=== PATIENT | female | born 1970 | race Caucasian/White ===

== ENCOUNTER 2019-10-13 10:12 | Inpatient (IN) | payer MEDICAID ==
[~2019-10-13] VITALS: Ht 157.5 cm; Wt 80.5 kg
--- NOTE | 2019-10-13 10:18 | NUR ---
PT JOELLEN FROM [facility] C/O NAUSEA/VOMITING, +ETOH, PT IS AAOX3 MALIAN SPEAKING ONLY, KEPT RESTED AND COMFORTABLE, WILL CONTINUE TO MONITOR.
--- NOTE | 2019-10-13 10:25 | NUR ---
AT BEDSIDE FOR EVAL.
[2019-10-13] MEDS ORDERED: ONDANSETRON HCL/PF 4 MG/2 ML VIAL IVP ONE (10:30)
[2019-10-13] MEDS ORDERED: IV NS 0.9% 1,000 ML BAG IV ONE ×2 (10:30→13:00)
--- NOTE | 2019-10-13 10:35 | NUR ---
IV LINE ESTABLISHED, BLOOD DRAWN AND SENT TO LAB.
[2019-10-13] MEDS ORDERED: ONDANSETRON HCL/PF 4 MG/2 ML VIAL ONE (10:41)
[2019-10-13 10:48] LABS: BASOPHILS # (AUTO) 0.1 /CMM (0.0-0.2); BASOPHILS % (AUTO) 0.6 % (0.0-2.0); EOSINOPHILS % (AUTO) 0.2 % (0.0-6.0); HEMATOCRIT 30 % (33-45); HEMOGLOBIN 10.5 g/dL (11.5-14.8); LYMPHOCYTES # (AUTO) 0.1 /CMM (0.8-4.8); LYMPHOCYTES % (AUTO) 0.5 % (20.0-44.0); MEAN CORPUSCULAR HGB CONC 35 g/dl (31.0-36.0); MEAN CORPUSCULAR VOLUME 103 fL (82-100); MONOCYTES # (AUTO) 0.6 /CMM (0.1-1.30); MONOCYTES % (AUTO) 3.7 % (2.0-12.0); NEUTROPHILS # (AUTO) 16.7 /CMM (1.8-8.9); PLATELET COUNT (AUTO) 87 /CMM (150-450); RED BLOOD CELL COUNT(AUTO) 2.92 MIL/uL (4.0-5.2); WHITE BLOOD COUNT (AUTO) 17.6 K/uL (4.3-11.0)
[2019-10-13 11:03] LABS: ACETAMINOPHEN 0 ug/ml (10-30); ALCOHOL, BLOOD 14 mg/dL (0-0); CREATININE 1.2 mg/dL (0.6-1.3); SALICYLATE < 2.8 mg/dL (2.8-20.0)
[2019-10-13 11:04] LABS: BILIRUBIN,DIRECT 2.9 mg/dL (0.0-0.2); BILIRUBIN,TOTAL 3.6 mg/dL (0.2-1.0)
[2019-10-13 11:05] LABS: ALBUMIN 2.5 g/dL (3.4-5.0); TOTAL PROTEIN, SERUM 7.4 g/dL (6.4-8.2)
[2019-10-13 11:09] LABS: POTASSIUM 2.6 mmol/L (3.5-5.1)
[2019-10-13 11:10] LABS: MAGNESIUM 1.3 mg/dL (1.8-2.4)
[2019-10-13 11:11] LABS: CALCIUM, SERUM 7.8 mg/dL (8.5-10.1)
[2019-10-13 11:24] LABS: BAND % (MANUAL) 30 % (0.0-5.0); LYMPHOCYTES % (MANUAL) 1 % (16-48); MONOCYTES % (MANUAL) 8 % (0-11.0); NEUTROPHILS % (MANUAL) 61 (42-76)
[2019-10-13] MEDS ORDERED: ASPIRIN 325 MG TABLET ONE (11:24)
[2019-10-13] MEDS ORDERED: Magnesium 1GM/D5W 100ML PREMIX 100 ML IV ONE (11:24)
[2019-10-13] MEDS ORDERED: POTASSIUM CL. PREMIX PERIPHER. 200 ML ONE (11:24)
[2019-10-13] MEDS ORDERED: POTASSIUM CHLORIDE 20 MEQ POWDER PACKET PO ONE (11:30)
[2019-10-13] MEDS ORDERED: POTASSIUM CHLORIDE 20 MEQ TAB.PRT.SR PO ONE ×2 (11:30→11:33)
[2019-10-13] MEDS ORDERED: Magnesium 1GM/D5W 100ML PREMIX 100 ML IV SCH (11:30)
[2019-10-13] MEDS ORDERED: ASPIRIN 325 MG TABLET PO ONE (11:30)
[2019-10-13] MEDS ORDERED: PIPERACILLIN /TAZOBACTAM 3.375 G in IV D5W 50 ML IV ONE (11:30)
[2019-10-13] MEDS ORDERED: VANCOMYCIN 1 GM in IV D5W 250 ML IV ONE (11:30)
[2019-10-13] MEDS ORDERED: POTASSIUM CHLORIDE 20 MEQ POWDER PACKET ONE (11:34)
--- NOTE | 2019-10-13 11:53 | NUR ---
CALLED NURSING SUP FOR BED
[2019-10-13 12:00] VITALS: BP 95/58
[2019-10-13 12:16] LABS: ALANINE AMINOTRANSFERASE 23 U/L (12-78); ALBUMIN 2.2 g/dL (3.4-5.0); ALKALINE PHOSPHATASE 101 U/L (46-116); ASPARTATE AMINOTRANSFERASE 94 U/L (15-37); BILIRUBIN,DIRECT 2.7 mg/dL (0.0-0.2); BILIRUBIN,TOTAL 3.4 mg/dL (0.2-1.0); TOTAL PROTEIN, SERUM 6.7 g/dL (6.4-8.2)
--- NOTE | 2019-10-13 12:17 | NUR ---
URINE SPECIMEN COLLECTED AND SENT TO LAB.
--- NOTE | 2019-10-13 12:18 | NUR ---
ROMM GIVEN: 113-1
--- NOTE | 2019-10-13 12:20 | NUR ---
REPORT HORTENCIA TO MICHAEL ANDERSEN FOR KAREN.
[2019-10-13 12:29] LABS: BILIRUBIN,URINE MODERATE (NEGATIVE); BLOOD, URINE Large Ery/uL (NEGATIVE); KETONES,URINE Trace (NEGATIVE); LEUKOCYTE ESTERASE ,URINE Small (NEGATIVE); NITRITE, URINE Negative (NEGATIVE); PH,URINE 5.5 (5.0-8.0); PROTEIN,URINE >=300 mg/dl (NEGATIVE); UGLUCOSE Negative (NEGATIVE)
[2019-10-13 12:30] LABS: APPEARANCE,URINE SLIGHTLY CLOUDY (CLEAR); BACTERIA,URINE Few /HPF (None Seen); COLOR,URINE DARK YELLOW (YELLOW); SQUAMOUS EPITHELIAL CELL,UR Few /HPF (None Seen)
[2019-10-13] MEDS ORDERED: ACETAMINOPHEN ES 500 MG TABLET ONE (12:37)
[2019-10-13] MEDS ORDERED: ACETAMINOPHEN ES 500 MG TABLET PO ONE (13:00)
--- NOTE | 2019-10-13 13:10 | NUR ---
PT BROUGHT ONTO UNIT BY SERG PT DENIES SOB OR PAIN AT PRESENT MOMENT. PT WAS ABLE TO AMBULATE TO BED. PT IS ST ON MONITOR. REPORT RECEIVED FROM NATASHA STREET RN.
[2019-10-13] MEDS ORDERED: IV NS 0.9% 1,000 ML BAG IV PRN (14:00)
[2019-10-13] MEDS ORDERED: IV NS 0.9% 1,000 ML IV PRN (14:30)
[2019-10-13] MEDS ORDERED: Thiamine 100 MG in IV D5W 50 ML IV SCH (14:30)
[2019-10-13] MEDS: FOLIC ACID 1 MG TABLET PO SCH (14:53)
[2019-10-13] MEDS ORDERED: Z GUARD REMEDY 2 OZ OINT TP PRN (15:00)
[2019-10-13] MEDS ORDERED: MAG HYDROX/AL HYDROX/SIMETH 30 ML UDC PO PRN (15:00)
[2019-10-13] MEDS ORDERED: ZOLPIDEM TARTRATE 5 MG TABLET PO PRN (15:00)
[2019-10-13] MEDS ORDERED: ONDANSETRON HCL/PF 4 MG/2 ML VIAL IVP PRN (15:00)
[2019-10-13] MEDS ORDERED: MAGNESIUM HYDROXIDE 30 ML UDC PO PRN (15:00)
[2019-10-13] MEDS: ONDANSETRON HCL/PF 4 MG/2 ML VIAL IV PRN (15:08)
--- NOTE | 2019-10-13 15:49 | NUR ---
PAGED ABOUT CRITICAL TRENDING TROPONIN. AWAITING RESPONSE
[2019-10-13 16:00] VITALS: BP 105/57
--- NOTE | 2019-10-13 16:23 | NUR ---
PT REFUSING PHOTOS DUE TO HER FEELING ABOUT TO VOMIT. MD ORDERS CARRIED OUT.
[2019-10-13] MEDS ORDERED: LOPERAMIDE HCL UDC 2 MG/15 ML LIQUID PO PRN (16:30)
[2019-10-13] MEDS ORDERED: LOPERAMIDE HCL UDC(2 MG/10 ML) 2 MG/10 ML UDC PO PRN (16:30)
[2019-10-13] MEDS: CEFTRIAXONE 1 G in IV D5W 50 ML IV SCH (16:38)
[2019-10-13] MEDS: PANTOPRAZOLE 40 MG VIAL IV SCH (16:57)
[2019-10-13 18:25] LABS: OCCULT BLOOD STOOL POSITIVE (NEGATIVE)
[2019-10-13] MEDS: Magnesium 1GM/D5W 100ML PREMIX 100 ML IV SCH ×2 (18:34→19:49)
--- NOTE | 2019-10-13 19:44 | NUR ---
RN CLOSING NOTES PT CURRENTLY ST 121 ON TELE MONITOR. PT DENIES SOB OR PAIN AT PRESENT MOMENT. PT IS A&OX4. BED IS LOCKED AND IN LOWEST POSITION WITH CALL LIGHT IN REACH. PT IS ABLE TO AMBULATE TO RESTROOM. REPORT GIVEN TO JACK TAMP OPERATOR RN FOR KAREN.
[2019-10-13 20:00] VITALS: BP 115/51
--- NOTE | 2019-10-13 20:00 | NUR ---
telephone ad taker notes received pts in bed awake alert and responsive able to make needs known . on tele monitor st -115 bpm , no sob no distress noted , v/s stable afebrile , all due meds given as ordered . ivf of ns at 125 cc/hr infusing well , all needs attended too call light within reach kept pts clean dry and comfortable ,potassium level of 2.6 60 meq iv ordered , mag of 1.3 2 grams given as ordered.will continue to monitor pts.
[2019-10-13] MEDS: POTASSIUM CL. PREMIX PERIPHER. 50 ML IV SCH ×4 (20:07→23:14)
--- NOTE | 2019-10-13 20:40 | NUR ---
telescope operator notes spoke to dr. marin operations and intelligence assistant relayed trop 1.736 , and ekg - st 115 bpm ,with order to repeat trop at 00:40hrs order noted and carried out.
[2019-10-13] MEDS: IV NS 0.9% 1,000 ML IV PRN (21:07)
[2019-10-14] VITALS: BP 106/44
[2019-10-14] MEDS: POTASSIUM CL. PREMIX PERIPHER. 50 ML IV SCH ×2 (00:11→01:07)
[2019-10-14] MEDS: IV NS 0.9% 1,000 ML IV PRN ×2 (02:16→15:29)
--- NOTE | 2019-10-14 03:55 | NUR ---
RN NOTES Lukas RUSH FROM LAB CALLED FOR PRELIMINARY BLOOD CULTURE RESULT OF GRAM NEGATIVE BACILLI. DR. YIP NOTIFIED; PATIENT ALREADY ON ROCEPHIN; NO ORDERS MADE
[2019-10-14 04:00] VITALS: BP_SYST 128; BP_DIAS 55; BP_DIAS 56
[2019-10-14 06:30] LABS: BASOPHILS % (AUTO) 0.1 % (0.0-2.0); EOSINOPHILS % (AUTO) 3.7 % (0.0-6.0); HEMATOCRIT 28 % (33-45); HEMOGLOBIN 9.5 g/dL (11.5-14.8); LYMPHOCYTES # (AUTO) 0.4 /CMM (0.8-4.8); LYMPHOCYTES % (AUTO) 1.5 % (20.0-44.0); MEAN CORPUSCULAR HGB CONC 34 g/dl (31.0-36.0); MEAN CORPUSCULAR VOLUME 105 fL (82-100); MONOCYTES # (AUTO) 2.1 /CMM (0.1-1.30); MONOCYTES % (AUTO) 7.7 % (2.0-12.0); NEUTROPHILS # (AUTO) 23.2 /CMM (1.8-8.9); PLATELET COUNT (AUTO) 52 /CMM (150-450); RED BLOOD CELL COUNT(AUTO) 2.66 MIL/uL (4.0-5.2); WHITE BLOOD COUNT (AUTO) 26.7 K/uL (4.3-11.0)
--- NOTE | 2019-10-14 06:47 | NUR ---
outbound telemarketer notes pts in bed a/o x3 no sob no distress noted will endorse to rn day shift for continuity of care , pts for cardio consult.
[2019-10-14 07:29] LABS: ALBUMIN 1.8 g/dL (3.4-5.0); BILIRUBIN,TOTAL 3.9 mg/dL (0.2-1.0); CALCIUM, SERUM 6.8 mg/dL (8.5-10.1); CREATININE 1.1 mg/dL (0.6-1.3); MAGNESIUM 1.5 mg/dL (1.8-2.4); PHOSPHORUS 1.9 mg/dL (2.5-4.9); POTASSIUM 4.1 mmol/L (3.5-5.1); TOTAL PROTEIN, SERUM 5.6 g/dL (6.4-8.2)
[2019-10-14 07:49] LABS: BAND % (MANUAL) 21 % (0.0-5.0); LYMPHOCYTES % (MANUAL) 1 % (16-48); METAMYELOCYTES % 1 % (0-0); MONOCYTES % (MANUAL) 8 % (0-11.0); NEUTROPHILS % (MANUAL) 69 (42-76)
[2019-10-14 08:00] VITALS: BP 108/66
--- NOTE | 2019-10-14 08:02 | NUR ---
DIGITAL ACCOUNT DIRECTOR NOTE PATIENT IN BED, ALERT ORIENTED X3 UNDER 2L OF NC, NO SOB, ON TELE MONITOR SR HR88, R AC IN PLACE , FLUSH 12 ON NS ON 125 ML PER HR, ALL NEEDS ATTENDED, CALL LIGHT WITHIN REACH, PLAN OF CARE DISCUSSED WITH PT, ON NPO AT THIS TIME, BED IN LOWEST POSITION, CALL LIGHT WITHIN REACH, CONTINUE TO MONITOR.
[2019-10-14] MEDS: PANTOPRAZOLE 40 MG VIAL IV SCH ×2 (08:22→16:44)
[2019-10-14] MEDS: FOLIC ACID 1 MG TABLET PO SCH (08:22)
--- NOTE | 2019-10-14 08:51 | NUR ---
MACHINE LOADER NOTE SPOKE WITH DR NARANJO DAM ATTENDANT NOTIFIED THAT TROPONIN NOW IS 1.624, STSTED THAT WILL CHECK IT OUT
[2019-10-14] MEDS: Magnesium 1GM/D5W 100ML PREMIX 100 ML IV SCH ×2 (10:33→11:28)
--- NOTE | 2019-10-14 10:39 | NUR ---
SUBSTATION SUPERINTENDENT NOTE MAG1.5 DR HOLMAN AWARE ALSO NOTIFIED THAT WBC 26.7 AN DOK TO START CLEAR LIQUID DIET ,URINE SPECIMEN COLLECTED ORDERED, AWARE THAT NA 126
--- NOTE | 2019-10-14 11:23 | NUR ---
CRYSTALIZER TENDER NOTE CT ANGIO CONSENT SIGNED BY PATIENT
[2019-10-14 12:00] VITALS: BP 113/71
[2019-10-14] MEDS ORDERED: K PHOS NEUTRAL 250 MG TABLET PO ONE (12:00)
[2019-10-14] MEDS: METOPROLOL TARTRATE 50 MG TABLET PO SCH ×2 (12:07→17:19)
[2019-10-14] MEDS ORDERED: CT SWABBABLE VALVE TRANS SET 1 EA INFUS.SET MC ONE (13:40)
[2019-10-14] MEDS ORDERED: IV NS 0.9% 250 ML IV ONE (13:40)
[2019-10-14] MEDS ORDERED: IOHEXOL-350 100 ML VIAL IV ONE (13:40)
[2019-10-14] MEDS ORDERED: METOPROLOL TARTRATE INJ 5 MG/5 ML AMPUL ONE (13:52)
[2019-10-14] MEDS ORDERED: NITROGLYCERIN 0.4 MG/TAB BOTTLE ONE (13:52)
[2019-10-14] MEDS: METOPROLOL TARTRATE INJ 5 MG/5 ML AMPUL IVP PRN ×3 (13:53→14:03)
[2019-10-14] MEDS ORDERED: NITROGLYCERIN 0.4 MG/TAB BOTTLE SL ONE (14:00)
[2019-10-14] MEDS: CEFTRIAXONE 1 G in IV D5W 50 ML IV SCH (14:43)
--- NOTE | 2019-10-14 14:45 | NUR ---
PHARMACIST HELPER NOTE CY ANGIO DONE
[2019-10-14 16:00] VITALS: BP 110/86
[2019-10-14] MEDS: ACETAMINOPHEN 325 MG TABLET PO PRN (16:35)
[2019-10-14] MEDS: THIAMINE HCL 100 MG TABLET PO SCH (16:44)
--- NOTE | 2019-10-14 18:18 | NUR ---
SYSTEMS APPLICATIONS PROGRAMMING LEAD NOTE CT ANGIO NOT RESULT, SPOKE WITH RADIOLOGY DEPARTMENT ,STATED THAT WILL CHECK SOON POSSIBLE, WILL F\U
--- NOTE | 2019-10-14 18:48 | NUR ---
LUG BREAKER AND WIRE PULLER NOTE ASSISTED TO BR , ALL NEEDS ATTENDED, NOT IN DISTRESS
[2019-10-14 20:00] VITALS: BP 105/79
[2019-10-14] MEDS: METRONIDAZOLE 500 MG TABLET PO SCH (20:21)
[2019-10-14] MEDS ORDERED: PIPERACILLIN /TAZOBACTAM 3.375 G VIAL IV ONE (20:26)
[2019-10-14] MEDS ORDERED: LOPERAMIDE HCL (2 MG CAP) 2 MG CAPSULE PO PRN (20:30)
[2019-10-14] MEDS ORDERED: PIPERACILLIN /TAZOBACTAM 3.375 G in IV D5W 50 ML IV ONE (21:00)
[2019-10-15] VITALS: BP 101/72
[2019-10-15] MEDS: IV NS 0.9% 1,000 ML IV PRN ×2 (02:02→21:21)
[2019-10-15] MEDS ORDERED: PIPERACILLIN /TAZOBACTAM 3.375 G in IV D5W 100 ML IV SCH (03:00)
[2019-10-15 04:00] VITALS: BP 103/60
[2019-10-15] MEDS: METRONIDAZOLE 500 MG TABLET PO SCH ×3 (05:14→21:12)
[2019-10-15] MEDS: METOPROLOL TARTRATE 50 MG TABLET PO SCH ×4 (05:53→17:03)
[2019-10-15 06:29] LABS: EOSINOPHILS % (AUTO) 1.1 % (0.0-6.0); HEMATOCRIT 28 % (33-45); HEMOGLOBIN 9.5 g/dL (11.5-14.8); LYMPHOCYTES # (AUTO) 0.3 /CMM (0.8-4.8); MEAN CORPUSCULAR HGB CONC 34 g/dl (31.0-36.0); MEAN CORPUSCULAR VOLUME 104 fL (82-100); MONOCYTES # (AUTO) 1.7 /CMM (0.1-1.30); MONOCYTES % (AUTO) 10.6 % (2.0-12.0); NEUTROPHILS # (AUTO) 13.5 /CMM (1.8-8.9); NEUTROPHILS % (AUTO) 86.3 % (43.0-81.0); RED BLOOD CELL COUNT(AUTO) 2.68 MIL/uL (4.0-5.2); WHITE BLOOD COUNT (AUTO) 15.7 K/uL (4.3-11.0)
[2019-10-15 07:06] LABS: ALBUMIN 1.9 g/dL (3.4-5.0); BILIRUBIN,TOTAL 4.7 mg/dL (0.2-1.0); CALCIUM, SERUM 7.1 mg/dL (8.5-10.1); CREATININE 1.2 mg/dL (0.6-1.3); MAGNESIUM 1.9 mg/dL (1.8-2.4); PHOSPHORUS 1.2 mg/dL (2.5-4.9); POTASSIUM 3.1 mmol/L (3.5-5.1); TOTAL PROTEIN, SERUM 5.8 g/dL (6.4-8.2)
[2019-10-15 07:50] LABS: PLATELET COUNT (AUTO) 44 /CMM (150-450)
[2019-10-15 08:00] VITALS: BP 128/76
[2019-10-15 08:08] LABS: BAND % (MANUAL) 2 % (0.0-5.0); LYMPHOCYTES % (MANUAL) 3 % (16-48); MONOCYTES % (MANUAL) 8 % (0-11.0); NEUTROPHILS % (MANUAL) 87 (42-76)
[2019-10-15] MEDS: FOLIC ACID 1 MG TABLET PO SCH (08:48)
[2019-10-15] MEDS: PANTOPRAZOLE 40 MG VIAL IV SCH ×2 (08:48→16:16)
[2019-10-15] MEDS: THIAMINE HCL 100 MG TABLET PO SCH (08:49)
--- NOTE | 2019-10-15 08:49 | NUR ---
TELE/RN NOTES MEDICATION FOLIC ACID, THIAMINE, AND PROTONIX IV WAS NOT GIVEN DUE TO PATIENT CONTINUES TO REFUSE X3. EXPLAINED RISK AND BENEFITS PATIENT STILL REFUSED. ALSO PATIENT REMOVED HER IV AND WOULD NOT ALLOW TO INSERT ANOTHER ONE. CONTINUE TO MONITOR CLOSELY.
[2019-10-15] MEDS ORDERED: POTASSIUM PHOSPHATE MM 15 MMOL in IV D5W 250 ML IV SCH (09:30)
[2019-10-15] MEDS ORDERED: DOSING PER PHARMACY-AMIKACI IV XX PRN (10:30)
[2019-10-15] MEDS ORDERED: Potassium Phosphate meq 11 MEQ in IV D5W 100 ML IV SCH (10:30)
--- NOTE | 2019-10-15 10:30 | NUR ---
Social service consult requested by Dr. Jean-Baptiste for homelessness and alcohol abuse. Pt. is a 49 year old female who was admitted to [facility] for N-stemi and Hypokalemia. SW met with the pt. bedside. Pt. is alert and oriented x 1. Pt. is Nauruan speaking but understands some Solomon Islander. ZENON Talley assisted in Nauruan translation. Pt. is unable to provide meaningful information at this time. Pt. thinks she lives in the hospital and is caring for a friend. Pt. tends to wander the hallways at the hospital. Pt. will require a sitter and psychiatric consult. BILL consulted with Dr. Jean-Baptiste who will order a sitter and psychiatric consult for the pt.
[2019-10-15] MEDS: POTASSIUM CHLORIDE 20 MEQ TAB.PRT.SR PO SCH ×2 (10:48→12:09)
[2019-10-15] MEDS ORDERED: FEE PK DOSING 1 MIN EA MC ONE (10:51)
[2019-10-15 12:00] VITALS: BP 118/70
[2019-10-15] MEDS ORDERED: AMIKACIN IV SCH (12:00)
[2019-10-15] MEDS ORDERED: D5W IV SCH (12:00)
--- NOTE | 2019-10-15 12:48 | NUR ---
TELE/RN NOTES PATIENT WAS PICKED UP BY RADIOLOGY TO DO HER CT SCAN. PATIENT LEFT THE UNIT IN STABLE CONDITION. AWAITING FOR PATIENT RETURN.
[2019-10-15] MEDS: POTASSIUM PHOSPHATE MM 7.5 MMOL in IV D5W 100 ML IV SCH ×2 (13:59→17:03)
[2019-10-15 16:00] VITALS: BP 126/62
--- NOTE | 2019-10-15 19:15 | NUR ---
RN OPENING NOTES: PATIENT AWAKE AND VERBALLY RESPONSIVE. NOTED WITH EPISODES OF CONFUSION. NO RESPIRATORY DISTRESS. NO PAIN. ON BILATERAL SOFT WRIST RESTRAINTS. SKIN WARM TO TOUCH WITH GOOD CIRCULATION. DENIES NUMBNESS OR TINGLING SENSATION. SITTER AT BEDSIDE. SAFETY PRECAUTIONS IMPLEMENTED. BED LOCKED AND IN LOWEST POSITION. IV ACCESS ON (L) HAND #20 INTACT, PATENT, AND FLUSHING WELL; RUNNING NS AT 125 MLS/HR, TOLERATING WELL. WILL CONT. TO MONITOR FOR CHANGES.
--- NOTE | 2019-10-15 19:27 | NUR ---
MS/RN CLOSING NOTES PATIENT CONTINUES TO REMAIN IN STABLE CONDITION THROUGHOUT THE SHIFT. PROVIDED COMFORT AND SAFETY. PATIENT WAS VERY NON COMPLIANT THROUGHOUT THE DAY. DR. WEEMS WAS AWARE WELL THE CRITICAL LABS. PATIENT DELAYED THE ATB THERAPY AND KPHOS IV DUE TO PATIENT REFUSING IV REINSERTION. EVENTUALLY PATIENT WAS PLACED IN RESTRAINTS AND IV WAS ESTABLISHED. ALL MEDICATIONS WAS GIVEN ORDERED. PATIENT TOLERATED MEDICATIONS WELL. 1 ON 1 SITTER AT BEDSIDE AT ALL TIMES. ALL NEEDS ANTICIPATED. CALL LIGHT WITHIN REACHED. SAFETY MAINTAINED. BED LOCKED AND IN LOWEST POSITION. WILL CONTINUE TO MONITOR. ENDORSED TO PM NURSE FOR KRAEN.
[2019-10-15 20:00] VITALS: BP 148/58
[2019-10-16] MEDS: METOPROLOL TARTRATE 50 MG TABLET PO SCH ×4 (00:05→17:55)
[2019-10-16 04:00] VITALS: BP 122/69
[2019-10-16] MEDS: METRONIDAZOLE 500 MG TABLET PO SCH ×3 (05:00→20:43)
[2019-10-16] MEDS: IV NS 0.9% 1,000 ML IV PRN ×2 (05:16→18:24)
[2019-10-16 06:52] LABS: BASOPHILS % (AUTO) 0.1 % (0.0-2.0); EOSINOPHILS % (AUTO) 1.1 % (0.0-6.0); HEMATOCRIT 28 % (33-45); HEMOGLOBIN 9.7 g/dL (11.5-14.8); LYMPHOCYTES # (AUTO) 0.5 /CMM (0.8-4.8); MEAN CORPUSCULAR HGB CONC 35 g/dl (31.0-36.0); MEAN CORPUSCULAR VOLUME 102 fL (82-100); MONOCYTES # (AUTO) 1.8 /CMM (0.1-1.30); MONOCYTES % (AUTO) 13.5 % (2.0-12.0); NEUTROPHILS # (AUTO) 10.7 /CMM (1.8-8.9); NEUTROPHILS % (AUTO) 81.3 % (43.0-81.0); RED BLOOD CELL COUNT(AUTO) 2.71 MIL/uL (4.0-5.2); WHITE BLOOD COUNT (AUTO) 13.2 K/uL (4.3-11.0)
[2019-10-16 07:00] LABS: PLATELET COUNT (AUTO) 44 /CMM (150-450)
[2019-10-16 07:07] LABS: ALBUMIN 1.8 g/dL (3.4-5.0); BILIRUBIN,TOTAL 5.1 mg/dL (0.2-1.0); CALCIUM, SERUM 7.4 mg/dL (8.5-10.1); MAGNESIUM 1.6 mg/dL (1.8-2.4); PHOSPHORUS 2.1 mg/dL (2.5-4.9); POTASSIUM 3.2 mmol/L (3.5-5.1); TOTAL PROTEIN, SERUM 5.6 g/dL (6.4-8.2)
--- NOTE | 2019-10-16 07:10 | NUR ---
MS RODRIGUEZ OPENING NOTE: RECEIVED PATIENT IN BED. AWAKE, ALERT AND ORIENTED X 4. ON CONT O2 VIA NC @ 2LPM AND TOLERATING WELL, NO SOB AND NOT IN ACUTE DISTRESS. IV SITE ON RIGHT HAND G22 PATENT AND D5NS @ 70ML/HR INFUSING WELL. SITE CLEAN AND SECURE. COMPLAINTS OF PAIN ON RIGHT HIP FROM S/P SURGERY STILL PRESENT. CALL LIGHT IN REACH, SIDE RAILS UP, BED LOCKED, LOW AND AT SEMI-SANCHES'S POSITION. WILL CONTINUE TO MONITOR. Addendum: 10/16/19 at 1103 by FRANCISCO KELLER RN WRONG PATIENT CHART.
--- NOTE | 2019-10-16 07:20 | NUR ---
RN CLOSING NOTES: PATIENT AWAKE AND VERBALLY RESPONSIVE WITH EPISODES OF CONFUSION. NO RESPIRATORY DISTRESS. NO PAIN. RECEIVED A CALL FROM LAB REGARDING CRITICAL PLATELET [address] YIP. PER AM SHIFT NURSE YESTERDAY, DR. WEEMS AWARE OF PLATELET COUNT 44 YESTERDAY. NO ACTIVE BLEEDING NOTED. ENDORSED TO AM SHIFT NURSE TO F/U WITH AM DOCTOR AND CONTINUITY OF CARE. Addendum: 10/16/19 at 0738 by GABRIEL MCGEE RN ENDORSED TO AM SHIFT NURSE TO HOLD AMIKACIN DOSE AT 12PM TODAY PER DR. YIP. Addendum: 10/16/19 at 1101 by FRANCISCO KELLER RN WRONG PATIENT CHART.
--- NOTE | 2019-10-16 07:30 | NUR ---
MS RN OPENING NOTE: RECEIVED PATIENT IN BED. AWAKE, ALERT AND ORIENTED X1. TOLERATING ROOM AIR WELL. NO SOB, NOT IN ACUTE DISTRESS. NO PAIN NOTED OR REPORTED. ON IV NS 125ML/HR. INFUSION IS PAUSED CURRENTLY. DRESSING TO BE CHANGED. CALL LIGHT IN REACH, SIDE RAILS UP, BED LOCKED AND LOW SEMI-SANCHES'S POSITION. WILL CONTINUE TO MONITOR.
[2019-10-16 07:41] LABS: BAND % (MANUAL) 23 % (0.0-5.0); EOSINOPHILS % (MANUAL) 2 % (0-4); LYMPHOCYTES % (MANUAL) 8 % (16-48); MONOCYTES % (MANUAL) 11 % (0-11.0); NEUTROPHILS % (MANUAL) 56 (42-76)
[2019-10-16 08:00] VITALS: BP 125/71
[2019-10-16] MEDS: PANTOPRAZOLE 40 MG VIAL IV SCH ×2 (09:01→17:55)
[2019-10-16] MEDS: FOLIC ACID 1 MG TABLET PO SCH (09:01)
[2019-10-16] MEDS: THIAMINE HCL 100 MG TABLET PO SCH (09:01)
[2019-10-16] MEDS ORDERED: NEUTRA PHOS 1 POWD.PACKET PO ONE ×2 (09:30→10:30)
[2019-10-16] MEDS ORDERED: POTASSIUM CHLORIDE 20 MEQ POWDER PACKET PO SCH ×2 (09:30→12:00)
[2019-10-16] MEDS: Magnesium 1GM/D5W 100ML PREMIX 100 ML IV SCH ×2 (10:53→10:55)
--- NOTE | 2019-10-16 17:20 | NUR ---
MS RN CLOSING NOTE: RECEIVED PATIENT IN BED. AWAKE, ALERT AND ORIENTED X1. TOLERATING ROOM AIR WELL. NO SOB, NOT IN ACUTE DISTRESS. NO PAIN NOTED OR REPORTED. IV NS 125ML/HR INFUSING AT RIGHT HAND. PATIENT IS STILL ON BILATERAL SOFT WRIST RESTRAINTS DUE TO PREVIOUS BEHAVIOR EXHIBITED. CALL LIGHT IN REACH, SIDE RAILS UP, BED LOCKED AND LOW SEMI-SANCHSE'S POSITION. ENDORSED TO NIGHT NURSE FOR KAREN.
[2019-10-16 17:33] LABS: IRON, SERUM 46 ug/dl (50-175); TOTAL IRON BINDING CAPACITY 110 ug/dl (250-450)
[2019-10-16 17:47] LABS: FERRITIN 916 ng/mL (8-388)
--- NOTE | 2019-10-16 19:25 | NUR ---
RN Opening Notes Received patient from MICHAEL Barragan at 1920. Patient currently in bed awake, A/O x 1. On room air, tolerating well. No respiratory distress noted. No shortness of breath noted. IV site intact and patent, no signs of infection/infiltration noted. IVF running as ordered. Patient exhibits facial grimacing when turning due to pain on right hip from s/p surgery. Soft restraints to bilateral wrist in place, skin intact, pulses palpable, skin color within normal limits. Safety precautions implemented; call light within reach, bed locked, bed lowest position, side rails up x2. Will continue to monitor patient.
[2019-10-16 21:00] VITALS: BP 124/85
[2019-10-17] MEDS: METOPROLOL TARTRATE 50 MG TABLET PO SCH ×5 (00:13→23:52)
[2019-10-17] MEDS: IV NS 0.9% 1,000 ML IV PRN (02:51)
[2019-10-17 05:00] VITALS: BP 107/61
[2019-10-17] MEDS: METRONIDAZOLE 500 MG TABLET PO SCH ×3 (05:57→20:49)
--- NOTE | 2019-10-17 06:24 | NUR ---
RN Closing Notes Patient currently in bed asleep, resting comfortably. Easily arousable to voice. No respiratory distress noted. No shortness of breath at this time. IVF currently running. Soft restraints to bilateral wrist in place, skin intact, pulses palpable, skin color within normal limits. Safety precautions implemented; call light within reach, bed locked, bed lowest position, side rails up x2. Will continue to monitor patient and then will endorse to dayshift nurse for continuity of care.
--- NOTE | 2019-10-17 07:27 | NUR ---
MS RN OPENING NOTE PATIENT IN BED RESTING COMFORTABLY. PATIENT IN NO ACUTE DISTRESS. NO SOB NOTED. PATIENT BREATHING IS EVEN AND UNLABORED. NO FACIAL GRIMACING NOTED. BED ALARM IS ON. SAFETY PRECAUTIONS IN PLACE. PATIENT MAINTAINED ON A 1:1 SITTER. PATIENT BED IS LOCKED AND IN LOWEST POSITION. CALL LIGHT WITHIN REACH. WILL CONTINUE TO MONITOR.
[2019-10-17 07:45] LABS: CALCIUM, SERUM 6.8 mg/dL (8.5-10.1); CREATININE 0.9 mg/dL (0.6-1.3); MAGNESIUM 1.4 mg/dL (1.8-2.4); PHOSPHORUS 2.4 mg/dL (2.5-4.9)
[2019-10-17] MEDS: FOLIC ACID 1 MG TABLET PO SCH (08:24)
[2019-10-17] MEDS: THIAMINE HCL 100 MG TABLET PO SCH (08:25)
[2019-10-17] MEDS: PANTOPRAZOLE 40 MG VIAL IV SCH ×2 (08:25→16:15)
[2019-10-17 08:37] VITALS: BP 116/75
[2019-10-17 08:50] LABS: POTASSIUM 2.4 mmol/L (3.5-5.1)
--- NOTE | 2019-10-17 09:05 | NUR ---
MS RN NOTE CRITICAL LAB VALUE RECEIVED FROM LAB OF POTASSIUM 2.4. DR. WEEMS NOTIFIED AND MADE AWARE. ORDERS TO GIVE 80 MEQ OF POTASSIUM CHLORIDE. WILL CONTINUE TO MONITOR.
[2019-10-17] MEDS: POTASSIUM CHLORIDE 20 MEQ TAB.PRT.SR PO SCH ×2 (09:08→10:37)
[2019-10-17] MEDS: Magnesium 1GM/D5W 100ML PREMIX 100 ML IV SCH ×4 (10:37→14:02)
--- NOTE | 2019-10-17 11:16 | NUR ---
MS RODRIGUEZ NOTE SEEN AND EVALUATED BY DR. WEEMS. ORDERS TO STOP NS 0.9% IV HYDRATION, AND ORDER CHEST XRAY. DR. WEEMS AWARE OF LOW PLATELET LEVELS. Addendum: 10/17/19 at 1544 by FREIDA COLEMAN RN PER STOPPED IV HYDRATION DUE TO CONGESTION, WHEEZING.
[2019-10-17 11:17] LABS: EOSINOPHILS % (AUTO) 0.6 % (0.0-6.0); HEMATOCRIT 23 % (33-45); LYMPHOCYTES # (AUTO) 0.6 /CMM (0.8-4.8); LYMPHOCYTES % (AUTO) 5.8 % (20.0-44.0); MEAN CORPUSCULAR HGB CONC 35 g/dl (31.0-36.0); MEAN CORPUSCULAR VOLUME 104 fL (82-100); MONOCYTES # (AUTO) 1.6 /CMM (0.1-1.30); MONOCYTES % (AUTO) 14.6 % (2.0-12.0); NEUTROPHILS # (AUTO) 8.6 /CMM (1.8-8.9); PLATELET COUNT (AUTO) 58 /CMM (150-450); RED BLOOD CELL COUNT(AUTO) 2.21 MIL/uL (4.0-5.2); WHITE BLOOD COUNT (AUTO) 10.9 K/uL (4.3-11.0)
[2019-10-17 11:42] LABS: BILIRUBIN,DIRECT 3.6 mg/dL (0.0-0.2); TOTAL PROTEIN, SERUM 3.4 g/dL (6.4-8.2)
[2019-10-17] MEDS ORDERED: AMIKACIN IV SCH (12:00)
[2019-10-17] MEDS ORDERED: D5W IV SCH (12:00)
[2019-10-17] MEDS ORDERED: NEUTRA PHOS 1 POWD.PACKET PO ONE (12:30)
--- NOTE | 2019-10-17 12:30 | NUR ---
MS RN NOTE REPORTED CRITICAL LAB VALUE OF ALBUMIN [address]. WEEMS, NO NEW ORDERS AT THIS TIME. UPGRADE DIET TO REGULAR.
--- NOTE | 2019-10-17 12:37 | NUR ---
MS RN NOTE PER PHARMACY OKAY TO ADMINISTER THE AMIKACIN.
[2019-10-17 13:00] VITALS: BP 132/77
[2019-10-17] MEDS: ACETAMINOPHEN 325 MG TABLET PO PRN (13:53)
[2019-10-17 16:09] VITALS: BP 107/66
--- NOTE | 2019-10-17 18:16 | NUR ---
MS RN CLOSING NOTE PATIENT IN BED RESTING COMFORTABLY. PATIENT IN NO ACUTE DISTRESS. NO SOB NOTED. PATIENT BREATHING IS EVEN AND UNLABORED. PATIENT KEPT CLEAN, DRY, AND COMFORTABLE THROUGHOUT SHIFT. PATIENT TO BE KEPT NPO AFTER MIDNIGHT FOR EGD TOMORROW. CONSENT IN CHART. UNABLE TO GRAB STOOL SPECIMEN PATIENT WENT TO BATHROOM AND NOT BEDSIDE COMMODE HAT AND FLUSHED STOOL. WILL ENDORSE TO CHOKE REAMER TO GRAB STOOL CULTURE. PATIENT MAINTAINED ON A 1:1 SITTER. PATIENT BED IS LOCKED AND IN LOWEST POSITION. CALL LIGHT WITHIN REACH. WILL ENDORSE CARE TO PM SHIFT FOR KAREN.
--- NOTE | 2019-10-17 19:00 | NUR ---
MS RN NOTE RECEIVED PT IN STABLE CONDITION A/O X 3-4, NOTED TO BE IN THE RESTROOM. SITTER ALSO WITH PT. NO SIGNS OF SOB OR DISTRESS, NO C/O PAIN OR N/V. IV IN R HAND #[address] S/L. PT TO BE NPO AT MIDNIGHT, SITTER AWARE. ALL CURRENT NEEDS ATTENDED TO. BED LOW, LOCKED, UPPER RAILS UP, AND CALL LIGHT WITHIN REACH. WILL CONT. TO MONITOR.
[2019-10-17 20:15] VITALS: BP 104/66
[2019-10-17] MEDS: HYDROCODONE/APAP 5/325MG 1 EACH TABLET PO PRN (20:55)
[2019-10-18] MEDS: METRONIDAZOLE 500 MG TABLET PO SCH ×3 (05:00→21:00)
[2019-10-18] MEDS: METOPROLOL TARTRATE 50 MG TABLET PO SCH ×3 (05:07→18:00)
[2019-10-18 05:08] VITALS: BP 125/74
--- NOTE | 2019-10-18 06:23 | NUR ---
MS RN NOTE PT REMAINS IN STABLE CONDITION A/O X 3-4, CURRENTLY WATCHING TV. NO SIGNS OF SOB OR DISTRESS, NO C/O PAIN OR N/V. IV IN RFA #[address] S/L. PT NPO SINCE MIDNIGHT. ALL CURRENT NEEDS ATTENDED TO. BED LOW, LOCKED, UPPER RAILS UP, AND CALL LIGHT WITHIN REACH. WILL CONT. TO MONITOR AND ENDORSE TO NEXT SHIFT FOR KAREN.
--- NOTE | 2019-10-18 07:10 | NUR ---
MS RN OPENING NOTE: RECEIVED PATIENT IN BED, AWAKE, ALERT AND ORIENTED X3. COMMUNICATES IN BOTH [place] AND [place]GOL[place]. ON ROOM AIR AND TOLERATING WELL. NO SOB, NOT IN ACUTE DISTRESS. IV SITE ON RIGHT FOREARM G20 AND RIGHT HANDG24 IN PLACE AND PATENT, DRESSINGS CLEAN AND INTACT. NO PAIN NOTED NOR REPORTED. PATIENT IS NPO SINCE MIDNIGHT FOR PROCEDURES DUE TODAY. CALL LIGHT IN REACH,, SIDE RAILS UP, BED LOCKED, LOW AND AT SEMI-SANCHES'S POSITION. WILL CONTINUE TO MONITOR.
[2019-10-18 07:14] LABS: CALCIUM, SERUM 7.8 mg/dL (8.5-10.1); PHOSPHORUS 1.9 mg/dL (2.5-4.9)
[2019-10-18 08:00] VITALS: BP 114/65
--- NOTE | 2019-10-18 08:50 | NUR ---
RN NOTE: CONSENT WAS OBTAINED FROM PATIENT FOR Cholescintigraphy. PATIENT VERBALIZED UNDERSTANDING OF THE PROCEDURES. NO SEAFOOD/DYE ALLERGIES WERE REPORTED. NO FURTHER EDUCATION SESSION FROM THE DOCTOR WAS REQUESTED AT THE MOMENT.
[2019-10-18 09:27] LABS: ALBUMIN 1.7 g/dL (3.4-5.0); BILIRUBIN,TOTAL 6.8 mg/dL (0.2-1.0); TOTAL PROTEIN, SERUM 5.4 g/dL (6.4-8.2)
[2019-10-18] MEDS: THIAMINE HCL 100 MG TABLET PO SCH (10:00)
[2019-10-18] MEDS: FOLIC ACID 1 MG TABLET PO SCH (10:00)
[2019-10-18] MEDS: PANTOPRAZOLE 40 MG VIAL IV SCH ×2 (10:00→17:00)
--- NOTE | 2019-10-18 10:40 | NUR ---
MS RN NOTE: PATIENT WAS TAKEN BY STAFF FOR Cholescintigraphy PROCEDURE. PATIENT IN STABLE CONDITION, NO DISTRESS NOTED.
[2019-10-18] MEDS ORDERED: NEUTRA PHOS 1 POWD.PACKET PO ONE (12:00)
[2019-10-18] MEDS: POTASSIUM CL. PREMIX PERIPHER. 50 ML IV SCH ×5 (13:24→21:12)
--- NOTE | 2019-10-18 13:24 | NUR ---
MS RN NOTE: FIRST BAG OF KCL 10 MEQ/50ML IV PIGGYBACK INFUSION STARTED. ADMINISTRATION WAS LATE DUE TO PATIENT HAVING PROCEDURE DONE TODAY. CURRENTLY ON NPO. NEUTRAPHOS 2 PACKETS AND METRONIDAZOLE 500MG TAB STILL HELD.
[2019-10-18 16:00] VITALS: BP 96/57
--- NOTE | 2019-10-18 17:10 | NUR ---
MS RN NOTE: SEEN BY LATA ARTEAGA, MAXIMINO AND INFORMED PATIENT OF Magnetic Resonance Cholangiopancreatography WITHOUT TO BE DONE STAT. ZENON KEITA A STAFF FLUENT IN SENEGALESE AT BEDSIDE TRANSLATING. RISKS AND BENEFITS WERE EXPLAINED, PATIENT AGREED TO PROCEDURE. PATIENT STILL ON NPO.
--- NOTE | 2019-10-18 17:20 | NUR ---
MS RN NOTE: PATIENT WAS TAKEN BY STAFF FOR MRCP PROCEDURE. PATIENT IN STABLE CONDITION.
--- NOTE | 2019-10-18 18:20 | NUR ---
MS RN NOTE: SPOKE TO DR. RODNEY GONZALEZ FOR PATIENT'S MRCP RESULT AND WAS INFORMED THAT IMAGING SHOWED ACUTE CHOLECYSTITIS. CONTACTED LATA ARTEAGA NP OF RESULT.
--- NOTE | 2019-10-18 19:25 | NUR ---
MS RN CLOSING NOTE: PATIENT IN BED, AWAKE, ALERT AND ORIENTED X3. COMMUNICATES IN BOTH ISRAELI AND [place]. ON ROOM AIR AND TOLERATING WELL. NO SOB, NOT IN ACUTE DISTRESS. IV SITE ON RIGHT FOREARM G20 AND RIGHT HANDG24 IN PLACE AND PATENT, DRESSINGS CLEAN AND INTACT. NO PAIN NOTED NOR REPORTED. PATIENT HAS BEEN AND STILL ON NPO SINCE MIDNIGHT FOR PROCEDURES THAT WERE DONE TODAY. HIDA AND MRCP WERE DONE EARLIER ON SHIFT. WAS SEEN BY LATA ARTEAGA NP AND AWAITING FURTHER ORDERS FOR IMAGING RESULTS. PO MEDICATIONS WERE HELD, 6 BAGS OF IV PIGGYBACK 10MEQ KCL/50CC @ 50CC/HR WERE ORDERED, 2 BAGS WERE INFUSED ON SHIFT. CALL LIGHT IN REACH,, SIDE RAILS UP, BED LOCKED, LOW AND AT SEMI-SANCHES'S POSITION. ENDORSED TO ONCOMING NIGHT NURSE FOR KAREN.
[2019-10-18 20:00] VITALS: BP 109/53
[2019-10-18] MEDS ORDERED: Sodium Phosphate 15 MMOL in IV D5W 250 ML IV ONE (20:30)
[2019-10-18] MEDS ORDERED: MEROPENEM 1 G in IV NS 0.9% 100 ML IV SCH (21:30)
--- NOTE | 2019-10-18 21:47 | NUR ---
MED NOTE: LAST 2 BAGS OK KCL NONADMINISTERED. ORDER CHANGED TO KPHOS.
[2019-10-18] MEDS ORDERED: MEROPENEM 1 G VIAL IV ONE (21:50)
[2019-10-18] MEDS: POTASSIUM PHOSPHATE MM 7.5 MMOL in IV NS 0.9% 100 ML IV SCH (22:40)
[2019-10-19] MEDS: POTASSIUM PHOSPHATE MM 7.5 MMOL in IV NS 0.9% 100 ML IV SCH (02:14)
[2019-10-19 04:00] VITALS: BP 102/59
[2019-10-19] MEDS: METOPROLOL TARTRATE 50 MG TABLET PO SCH ×4 (05:14→18:00)
[2019-10-19 07:10] LABS: CALCIUM, SERUM 7.8 mg/dL (8.5-10.1); CREATININE 1.5 mg/dL (0.6-1.3); POTASSIUM 4.3 mmol/L (3.5-5.1)
[2019-10-19 08:00] VITALS: BP 127/78
[2019-10-19] MEDS: THIAMINE HCL 100 MG TABLET PO SCH (08:58)
[2019-10-19] MEDS: FOLIC ACID 1 MG TABLET PO SCH (08:58)
[2019-10-19] MEDS: MEROPENEM 1 G in IV NS 0.9% 100 ML IV SCH ×3 (08:59→21:27)
[2019-10-19] MEDS: PANTOPRAZOLE 40 MG VIAL IV SCH ×2 (08:59→17:00)
[2019-10-19] MEDS ORDERED: DEXTROSE 50%-WATER 50 ML DISP.SYRIN IVP ONE (09:30)
[2019-10-19] MEDS ORDERED: IV D5/0.45 NACL 1,000 ML IV PRN ×2 (10:30→18:00)
[2019-10-19 16:00] VITALS: BP 105/57
[2019-10-19] MEDS ORDERED: FENTANYL PF 100MCG/2ML AMPUL ONE (16:45)
[2019-10-19] MEDS ORDERED: ANESTHESIA TRAY IN PYXIS 1 EA TRAY MC ONE (16:46)
--- NOTE | 2019-10-19 19:00 | NUR ---
MS RN CLOSING PATIENT REMAINS A/Ox4, CAMEROONIAN SPEAKING. NO ACUTE DISTRESS NOTED, ON ROOM AIR. BOWEL MOVEMENT TODAY WAS BROWN AND FORMED. REPORTS ABDOMINAL PAIN. PATIENT AMBULATORY. S/P EGD TODAY. PER MD ORDERS, CLEAR LIQUIDS, PROCEDURE FOR TOMORROW AM, CONSENT OBTAINMENT ENDORSED TO NITA RN. NPO AFTER MIDNIGHT TONIGHT. IV SITES X2 C/D/I. BED ALARM ON. BP STABLE THROUGHOUT SHIFT. FRIEND + COMMODE AT BEDSIDE. ISOLATION FOR ESBL URINE IN PLACE. CALL LIGHT WITHIN REACH
--- NOTE | 2019-10-19 19:25 | NUR ---
MS RN OPENING NOTE PM PATIENT A/Ox4, VENEZUELAN SPEAKING JAPANESE SPEAKING MALE FRIEND AT THE BEDSIDE. PT IN NO APPARENT ACUTE DISTRESS ON ROOM AIR BREATHING EVEN AND UNLABORED. PT REPORTS MILD ABDOMINAL PAIN TO RIGHT SIDE /. PATIENT AMBULATORY PER REPORT SEEN IN BED. REVIEWED POC WITH HELP OF FRIEND AT BEDSIDE TO TRANSLATE PATIENT HAS ORDERS TO HAVE LAP SAVI TOMORROW. PT IS IN AGREEMENT WITH THE PLAN. PT TOLERATING CLEAR LIQUID DIET DENIES NAUSEA VOMITING. REVIEWED PLAN TO BE NPO AFTER MIDNIGHT TONIGHT. BED ALARM ON. ON CONTACT ISOLATION FOR ESBL URINE IN PLACE. CALL LIGHT WITHIN REACH BED DOWN LOCKED SRX2. WILL CONT TO MONITOR.
[2019-10-19 20:00] VITALS: BP 93/51
--- NOTE | 2019-10-19 21:18 | NUR ---
consents for lap binu and consent for anesthesia signed with help of abel rahman whom speaks turkmen.
[2019-10-19] MEDS: HYDROCODONE/APAP 5/325MG 1 EACH TABLET PO PRN (21:27)
--- NOTE | 2019-10-19 22:08 | NUR ---
DR. RAMSEY PHONE CALL dr. ramsey called and reviewed details of vera pina. informed dakota had already written orders for surgery in am and to keep pt npo. orders reviewed. new order for dilaudid prn ivp for sever pain given. states he will be calling bathhouse attendant to have surgery scheduled for in the am tomorrow. and reaffirmed to keep pt npo after midnight.
[2019-10-19] MEDS ORDERED: HYDROMORPHONE INJ 0.5 MG/0.5 ML SYRINGE IV PRN (22:30)
[2019-10-20] VITALS (26 sets, daily range): BP systolic 86–111; BP diastolic 46–72
[2019-10-20] MEDS: MEROPENEM 1 G in IV NS 0.9% 100 ML IV SCH ×3 (04:38→21:21)
[2019-10-20] MEDS: METOPROLOL TARTRATE 50 MG TABLET PO SCH ×5 (04:48→23:20)
--- NOTE | 2019-10-20 04:49 | NUR ---
METOPROLOL HELD. metoprolol being held d/t patient having bp of 98/50. outside paramaters. sbp to be greater then 105.
--- NOTE | 2019-10-20 06:22 | NUR ---
MS RN CLOSING NOTE PM PATIENT A/Ox4, [place] SPEAKING KAZAKH SPEAKING IN BED. PT IN NO APPARENT ACUTE DISTRESS ON ROOM AIR BREATHING EVEN AND UNLABORED. PT REPORTS ABDOMINAL PAIN HAS SUBSIDED. REVIEWED WITH PATIENT HARITHA HOU TODAY AT 10 AM. PT BEEN NPO SINCE MIDNIGHT. BED ALARM ON. ON CONTACT ISOLATION FOR ESBL URINE IN PLACE. CALL LIGHT WITHIN REACH BED DOWN LOCKED SRX2. WILL CONT TO MONITOR.
[2019-10-20 06:48] LABS: BASOPHILS % (AUTO) 0.1 % (0.0-2.0); EOSINOPHILS % (AUTO) 0.1 % (0.0-6.0); HEMATOCRIT 27 % (33-45); HEMOGLOBIN 9.5 g/dL (11.5-14.8); LYMPHOCYTES # (AUTO) 1.2 /CMM (0.8-4.8); LYMPHOCYTES % (AUTO) 3.3 % (20.0-44.0); MEAN CORPUSCULAR HGB CONC 35 g/dl (31.0-36.0); MEAN CORPUSCULAR VOLUME 102 fL (82-100); MONOCYTES # (AUTO) 1.4 /CMM (0.1-1.30); MONOCYTES % (AUTO) 3.9 % (2.0-12.0); NEUTROPHILS # (AUTO) 32.3 /CMM (1.8-8.9); NEUTROPHILS % (AUTO) 92.6 % (43.0-81.0); PLATELET COUNT (AUTO) 248 /CMM (150-450); RED BLOOD CELL COUNT(AUTO) 2.63 MIL/uL (4.0-5.2)
[2019-10-20 06:51] LABS: CALCIUM, SERUM 7.5 mg/dL (8.5-10.1); CREATININE 1.8 mg/dL (0.6-1.3); MAGNESIUM 1.9 mg/dL (1.8-2.4); PHOSPHORUS 3.8 mg/dL (2.5-4.9); WHITE BLOOD COUNT (AUTO) 34.9 K/uL (4.3-11.0)
--- NOTE | 2019-10-20 06:58 | NUR ---
DR. STEINER ([facility] SHRINK PIT OPERATOR DOCTOR) PAGED FOR CRITICAL LAB VALUE OF WBC 34.9 CRITICAL VALUE.
--- NOTE | 2019-10-20 07:04 | NUR ---
OBDULIA CALLED BACK INFORMED OF LAB VALUE. NO NEW ORDERS RECIEVED.
[2019-10-20] MEDS: PANTOPRAZOLE 40 MG VIAL IV SCH ×2 (08:22→17:02)
[2019-10-20 08:42] LABS: BAND % (MANUAL) 6 % (0.0-5.0); LYMPHOCYTES % (MANUAL) 3 % (16-48); MONOCYTES % (MANUAL) 3 % (0-11.0); NEUTROPHILS % (MANUAL) 88 (42-76)
[2019-10-20] MEDS: FOLIC ACID 1 MG TABLET PO SCH (09:00)
[2019-10-20] MEDS: THIAMINE HCL 100 MG TABLET PO SCH (09:00)
[2019-10-20] MEDS ORDERED: MEPERIDINE HCL/PF 100 MG/ML DISP.SYRIN ONE (10:25)
[2019-10-20] MEDS ORDERED: FENTANYL PF 250MCG/5ML AMPUL ONE (10:25)
[2019-10-20] MEDS ORDERED: MIDAZOLAM HCL 2 MG/2ML VIAL ONE (10:25)
[2019-10-20] MEDS ORDERED: ROCURONIUM BROMIDE 50 MG/5 ML ONE (10:27)
[2019-10-20] MEDS ORDERED: KETOROLAC TROMETHAMINE INJ 30 MG/ML VIAL ONE ×2 (10:29)
[2019-10-20] MEDS ORDERED: LIDOCAINE HCL/MPF 1% 30 ML VIAL IJ ONE (10:44)
[2019-10-20] MEDS ORDERED: BUPIVACAINE MPF 0.5% W/EPI INJ 30 ML VIAL ONE (10:44)
[2019-10-20] MEDS ORDERED: ATRACURIUM 100MG/10 ML MDV IV ONE (11:17)
[2019-10-20] MEDS ORDERED: ALBUMIN 5% 250 ML IV ONE (11:21)
[2019-10-20] MEDS ORDERED: CELLULOSE,OXIDIZED 1 PKT EACH MC ONE ×2 (12:06→12:21)
[2019-10-20] MEDS ORDERED: EPINEPHRINE (1:1000) 1 MG/ML AMPUL ONE ×2 (12:11→12:21)
--- NOTE | 2019-10-20 12:30 | NUR ---
FLAKITA RN Notes Pt to ICU following Desiree Hudson. Report given to NIGHT NURSE for continuity of care. Belongings/chart sent to ICU RM 253.
[2019-10-20] MEDS ORDERED: BACITRACIN ZINC OINT PACKET 1 EA PACKET TP ONE (12:48)
--- NOTE | 2019-10-20 13:25 | NUR ---
ICU/RN: Pt received from OR S/P laparascopic cholecystectomy, intubated, breathing even and unlabored, sedated. Bedside report received from Dr Hutchins, anesthesiologist. Per MD, pt unable to ventilate adequately with "tidal volumes in 100's," and elected to keep pt intubated for management in ICU. Pt with 4 lap sites, with DHRUV draining ascites. Pt responsive to pain.
--- NOTE | 2019-10-20 13:35 | NUR ---
ICU/RN: Spoke with Dr Flood on the phone, informed of 305cc serosanguineous drainage from DHRUV bulb within 10 minutes. 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
--- NOTE | 2019-10-20 13:40 | NUR ---
ICU/RN: Dr Mendoza at bedside for pulmonology consult; updated on pt status. Vent settings reviewed, new orders noted and carried out.
--- NOTE | 2019-10-20 13:45 | NUR ---
ICU/RN: MAXIMINO Bhagat notified of pt change in condition and transfer to ICU. Orders noted and carried out.
[2019-10-20] MEDS: PROPOFOL 100 ML IV PRN (14:20)
--- NOTE | 2019-10-20 14:45 | NUR ---
ICU/RN: Spoke with Rx regarding 1300 Merrem dose; awaiting delivery.
[2019-10-20] MEDS ORDERED: IV NS 0.9% 500 ML IV ONE (15:30)
[2019-10-20 16:19] LABS: ABG BASE EXCESS -7.9 mmol/L; ABG OXYGEN SATURATION 98.4 % (92.0-98.5); ABG PCO2 38.8 mmHg (35.0-45.0); ABG PH 7.287 (7.350-7.450); AaDO2 89.6 mmHg; COHb 0.4 % (0.5-1.5); MetHb 1.2 % (0.0-1.5); O2Hb 96.8 % (94.0-97.0); SITE, ABG Left Radial; VENT MODE, BG 650 7 +0 40%
[2019-10-20] MEDS: IV D5/ 0.9% NACL 1,000 ML IV PRN (17:03)
--- NOTE | 2019-10-20 18:40 | NUR ---
ICU/RN: Pt in bed, off sedation, appears comfortable and in no distress. Responds to touch. DHRUV in place, continuous to have serosanguineous output. SR on monitor. FC draining dark isabella urine to gravity. Pending midline insertion.
--- NOTE | 2019-10-20 19:10 | NUR ---
ICU/MANAGER UNIVERSAL PT REQUIRED MIDLINE. MIDLINE NURSE PLACED LINE TO RIGHT UPPER ARM.
--- NOTE | 2019-10-20 19:45 | NUR ---
ICU/COMMUNITY MIDWIFE RECEIVED REPORT FROM DAY SHIFT NURSE. SEE FLOWSHEET FOR ASSESSMENT. THERE ARE NO SKIN ISSUES THAT NEED TO BE ADDRESSED. PT IS ALERT X 2 .PT IS CURRENTLY ORALLY INTUBATED, TOLERATING THESE SETTINGS WITH SATURATION AT 97-100%. PT WAS TURNED AND REPOSITIONED FOR COMFORT AND CARE. WILL CONTINUE TO MONITOR THIS PT. PT POST OPERATION OF LAP SAVI WITH DRAINING DHRUV. PT HAS NO SEDATION ON.
[2019-10-20] MEDS ORDERED: NOREPINEPHRINE 8 MG in IV D5W 500 ML IV PRN (20:00)
--- NOTE | 2019-10-20 20:05 | NUR ---
ICU/PHILOSOPHY FACULTY DEIDRA JATIN SAID OK TO PLACE A PICC LINE AND OK TO START LEVO IF NEEDED FOR LOW BP
--- NOTE | 2019-10-20 22:10 | NUR ---
ICU/LINEN SUPPLY LOAD BUILDER PT WAS TURNED AND REPOSITIONED FOR COMFORT AND CARE. PT ORALLY INTUBATED, WITH SATURATION AT 93-95%. WILL CONTINUE TO MONITOR THIS PT. DHRUV IS DRAINING INTO SECOND BAG.
--- NOTE | 2019-10-20 23:31 | NUR ---
ICU/ELECTRO MECHANIC PT HAS MIDNIGHT DOSE OF LOPRESSER WHICH WAS HELD DUE TO BLOOD PRESSURE 91/46. WILL CONTINUE TO MONITOR PT'S BLOOD PRESSURE ORDERED BY .
[2019-10-21] VITALS (39 sets, daily range): BP systolic 82–163; BP diastolic 23–102
--- NOTE | 2019-10-21 00:48 | NUR ---
ICU/STAKING PRESS OPERATOR PT WAS TURNED AND REPOSITIONED FOR COMFORT AND CARE. PT REMAINS ORALLY INTUBATED, WITH SATURATION AT 100%. WILL CONTINUE TO MONITOR THIS PT. NO ACUTE PAIN SEEN ALONG WITH NO ACUTE DISTRESS SEEN.
[2019-10-21] MEDS: HYDROMORPHONE 1 MG/1 ML DISP.SYRIN IV PRN (01:00)
--- NOTE | 2019-10-21 01:07 | NUR ---
ICU/BALING PRESS OPERATOR DILAUDID 0.5MG GIVEN IVP FOR PAIN AT 09/09 TO POST OP SITE, BY LIFT MECHANIC NURSE. WILL CONTINUE TO MONITOR THIS PT.
--- NOTE | 2019-10-21 03:00 | NUR ---
ICU/CITY COUNCILMAN PT WAS GIVEN AM CARE. PT TOLERATED THIS WELL, REMAINS ON CURRENT VENT SETTINGS WITH SATURATION AT 100%. J/P DRAIN WAS EMPTIED OUT. PT WAS TURNED AND REPOSITIONED FOR COMFORT AND CARE. WILL CONTINUE TO MONITOR THIS PT.
--- NOTE | 2019-10-21 04:30 | NUR ---
ICU/POLYMERIZATION SUPERVISOR AM LABS WERE DRAWN, AWAITING FOR ANY ABNORMAL LABS.
[2019-10-21] MEDS: MEROPENEM 1 G in IV NS 0.9% 100 ML IV SCH ×2 (04:38→17:13)
[2019-10-21] MEDS: IV D5/ 0.9% NACL 1,000 ML IV PRN ×2 (04:39→20:52)
[2019-10-21 05:15] LABS: BASOPHILS # (AUTO) 0.1 /CMM (0.0-0.2); BASOPHILS % (AUTO) 0.3 % (0.0-2.0); HEMATOCRIT 24 % (33-45); LYMPHOCYTES # (AUTO) 0.6 /CMM (0.8-4.8); MEAN CORPUSCULAR HGB CONC 34 g/dl (31.0-36.0); MEAN CORPUSCULAR VOLUME 103 fL (82-100); MONOCYTES # (AUTO) 0.8 /CMM (0.1-1.30); MONOCYTES % (AUTO) 2.7 % (2.0-12.0); NEUTROPHILS # (AUTO) 28.9 /CMM (1.8-8.9); PLATELET COUNT (AUTO) 238 /CMM (150-450); RED BLOOD CELL COUNT(AUTO) 2.28 MIL/uL (4.0-5.2)
[2019-10-21 05:28] LABS: BILIRUBIN,DIRECT 7.6 mg/dL (0.0-0.2); BILIRUBIN,TOTAL 9.2 mg/dL (0.2-1.0); CALCIUM, SERUM 7.6 mg/dL (8.5-10.1); CREATININE 1.8 mg/dL (0.6-1.3); MAGNESIUM 1.5 mg/dL (1.8-2.4); POTASSIUM 4.1 mmol/L (3.5-5.1); TOTAL PROTEIN, SERUM 4.6 g/dL (6.4-8.2)
--- NOTE | 2019-10-21 05:30 | NUR ---
ICU/FOOD AND BEVERAGE LEAD URINE COLLECTED FOR CULTURE AND PROFILE. THIS WAS ORDERED FOR THE INFECTIOUS DISEASE SECY [facility] WHO ORDERED THIS.
[2019-10-21 05:40] LABS: ALBUMIN 1.3 g/dL (3.4-5.0)
[2019-10-21] MEDS: METOPROLOL TARTRATE 50 MG TABLET PO SCH ×3 (06:00→18:00)
[2019-10-21 06:03] LABS: WHITE BLOOD COUNT (AUTO) 30.4 K/uL (4.3-11.0)
[2019-10-21 06:33] LABS: APPEARANCE,URINE SL CLOUDY (CLEAR); BILIRUBIN,URINE LARGE (NEGATIVE); BLOOD, URINE LARGE Ery/uL (NEGATIVE); COLOR,URINE BROWN (YELLOW); KETONES,URINE TRACE (NEGATIVE); LEUKOCYTE ESTERASE ,URINE NEGATIVE (NEGATIVE); NITRITE, URINE NEGATIVE (NEGATIVE); PROTEIN,URINE 30 mg/dl (NEGATIVE); UGLUCOSE NEGATIVE (NEGATIVE)
--- NOTE | 2019-10-21 06:40 | NUR ---
ICU/MANAGER OFFICE SERVICES ALBUMIN 1.3 FOR TODAY, YESTERDAY IS 1.7. MD STEINER CALLED. SAID TO WATCH IT.
[2019-10-21 06:48] LABS: LYMPHOCYTES % (MANUAL) 1 % (16-48); MONOCYTES % (MANUAL) 1 % (0-11.0); NEUTROPHILS % (MANUAL) 98 (42-76)
[2019-10-21 07:24] LABS: RBC,URINE 81-100 /HPF (0-2)
[2019-10-21 07:25] LABS: BACTERIA,URINE Few /HPF (None Seen); MUCUS,URINE Few /LPF (None Seen); URINE AMORPHOUS URATE Few /HPF (None Seen)
[2019-10-21] MEDS: FOLIC ACID 1 MG TABLET PO SCH (08:18)
[2019-10-21] MEDS: THIAMINE HCL 100 MG TABLET PO SCH (08:18)
[2019-10-21] MEDS: PANTOPRAZOLE 40 MG VIAL IV SCH ×2 (08:22→17:11)
[2019-10-21] MEDS: PROPOFOL 100 ML IV PRN (08:37)
[2019-10-21] MEDS ORDERED: DC PROPOFOL WHEN EXTUBATED XX PRN (09:00)
--- NOTE | 2019-10-21 09:45 | NUR ---
ICU/RN: Unable to collect respiratory culture; no secretions noted.
[2019-10-21 10:25] LABS: ABG BASE EXCESS -6.8 mmol/L; ABG OXYGEN SATURATION 98.2 % (92.0-98.5); ABG PCO2 36.5 mmHg (35.0-45.0); ABG PH 7.325 (7.350-7.450); AaDO2 100.2 mmHg; COHb 0.2 % (0.5-1.5); MetHb 0.6 % (0.0-1.5); O2Hb 97.4 % (94.0-97.0); SITE, ABG Left Brachial
--- NOTE | 2019-10-21 10:30 | NUR ---
PER DR LAU PATIENT WAS EXTUBATED AND TOLERATED WELL. PLACED ON 2L N/C. RN AWARE.
--- NOTE | 2019-10-21 11:08 | NUR ---
ICU/RN: Pt s/p extubation, tolerating 2L/min O2 via NC. Pt awake, follows commands, slightly anxious. Oriented to poc. Pt compliant. Dr Flood paged to clarify diet orders. Awaiting call back.
[2019-10-21] MEDS ORDERED: Magnesium 1GM/D5W 100ML PREMIX 100 ML IV SCH (11:30)
[2019-10-21] MEDS ORDERED: IV NS 0.9% 500 ML IV ONE (11:30)
--- NOTE | 2019-10-21 11:30 | NUR ---
ICU/RN: Dr Jacobs at bedside; updated on pt status. Per MD, okay for pt to start on clear liquids and advance as tolerated. Informed of low urine output, BP in 90's. Bolus for NS 500cc noted and carried out.
[2019-10-21] MEDS: HYDROCODONE/APAP 5/325MG 1 EACH TABLET PO PRN (17:11)
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
[2019-10-21] MEDS: LINEZOLID RTU BAG 600 MG in PREMIX 1 EA IV SCH (21:00)
[2019-10-21] MEDS ORDERED: METRONIDAZOLE 500MG/ NS 100ML 500 MG in PREMIX 1 EA IV SCH (21:00)
[2019-10-21] MEDS ORDERED: METRONIDAZOLE 500MG/ NS 100ML 100 ML IV ONE (22:52)
[2019-10-21] MEDS ORDERED: LINEZOLID RTU BAG 300 ML IV ONE (23:04)
[2019-10-22] VITALS (14 sets, daily range): BP systolic 91–152; BP diastolic 34–83
[2019-10-22] MEDS: MEROPENEM 1 G in IV NS 0.9% 100 ML IV SCH ×2 (05:01→18:06)
[2019-10-22 05:02] LABS: BASOPHILS % (AUTO) 0.1 % (0.0-2.0); HEMATOCRIT 25 % (33-45); HEMOGLOBIN 8.4 g/dL (11.5-14.8); LYMPHOCYTES # (AUTO) 0.8 /CMM (0.8-4.8); LYMPHOCYTES % (AUTO) 2.8 % (20.0-44.0); MEAN CORPUSCULAR HGB CONC 34 g/dl (31.0-36.0); MEAN CORPUSCULAR VOLUME 103 fL (82-100); MONOCYTES # (AUTO) 1.3 /CMM (0.1-1.30); MONOCYTES % (AUTO) 4.5 % (2.0-12.0); NEUTROPHILS # (AUTO) 26.7 /CMM (1.8-8.9); NEUTROPHILS % (AUTO) 92.6 % (43.0-81.0); PLATELET COUNT (AUTO) 289 /CMM (150-450); RED BLOOD CELL COUNT(AUTO) 2.44 MIL/uL (4.0-5.2); WHITE BLOOD COUNT (AUTO) 28.8 K/uL (4.3-11.0)
[2019-10-22 05:15] LABS: CALCIUM, SERUM 7.8 mg/dL (8.5-10.1); CREATININE 1.8 mg/dL (0.6-1.3); MAGNESIUM 1.8 mg/dL (1.8-2.4); PHOSPHORUS 4.7 mg/dL (2.5-4.9); POTASSIUM 4.4 mmol/L (3.5-5.1)
[2019-10-22] MEDS ORDERED: METRONIDAZOLE 500MG/ NS 100ML 100 ML IV ONE (05:31)
[2019-10-22] MEDS: METRONIDAZOLE 500MG/ NS 100ML 500 MG in PREMIX 1 EA IV SCH ×3 (05:34→20:28)
[2019-10-22] MEDS: METOPROLOL TARTRATE 50 MG TABLET PO SCH ×5 (06:03→23:45)
--- NOTE | 2019-10-22 06:11 | NUR ---
RN NOTES IN BED, RESTING COMFORTABLY WATCHING TV WITH NO DISTRESS NOTED. BREATHING EVEN AND UNLABORED. ON 2LPM 02 VIA NASAL CANNULA TOLERATING WELL. NOTED WITH OPEN BLISTER AT RIGHT INNER THIGH, PICTURE TAKEN, REQUESTED FOR WOUND CONSULT. COVERED WITH MEPILEX. PATIENT ALERT AND ORIENTED WITH EPISODES OF CONFUSION. KEPT CLEAN AND DRY. WILL ENDORSE TO NEXT SHIFT FOR CONTINUITY OF CARE
--- NOTE | 2019-10-22 07:30 | NUR ---
RN NOTES RECEIVED PATIENT IN BED, AWAKE AND ALERT, ABLE TO COMMUNICATE WELL, ON ROOM AIR, BREATHING UNLABORED. NOT ON ANY FORM OF DISTRESS. WITH PAIN DESCRIBED " A LITTLE BIT " PATIENT IS ABLE TO SMILE AT THIS TIME. SCLERA IS YELLOWISH IN APPEARANCE. PATIENT SINUS RHYTHM ON THE MONITOR WITH HR ON THE 80s. WITH ONGOING D5NS AT 75CC/HR. MIDLINE ON THE UPPER ARM AND G20 ON THE FOREARM. BOTH IN PLACE, WITH DRESSING INTACT. WITH DHRUV DRAIN DRAINING TO YELLOW TO DARK YELLOW DRAINAGE; ADEQUATE IN AMOUNT, INITIAL DRAIN IS 400ML IN TOTAL FROM THE DHRUV AND DRAIN BAG. VALENZUELA CATHETER DRAINING VIA GRAVITY TO YELLOW URINE. PATIENT ENCOURAGE TO VERBALIZE FEELINGS AND CONCERNS. CALL LIGHT PLACE WITHIN REACH. HOB ELEVATED. BED IN LOW AND LOCKED POSITION. WILL CONTINUE TO MONITOR PATIENT AND ANTICIPATE NEEDS
[2019-10-22] MEDS: PANTOPRAZOLE 40 MG VIAL IV SCH ×2 (08:40→18:06)
[2019-10-22] MEDS: FOLIC ACID 1 MG TABLET PO SCH (08:40)
[2019-10-22] MEDS: LINEZOLID RTU BAG 600 MG in PREMIX 1 EA IV SCH ×2 (08:40→20:48)
[2019-10-22] MEDS: THIAMINE HCL 100 MG TABLET PO SCH (08:40)
--- NOTE | 2019-10-22 09:00 | NUR ---
RN NOTES DR. LIZ AT BEDSIDE. PATIENT SEEN AND EXAMINED. NNO ORDERS AT THIS TIME
--- NOTE | 2019-10-22 10:05 | NUR ---
WOUND CARE CONSULT: LIMITED ASSESSMENT TODAY DUE TO PT CRYING AND REFUSING TO FULLY TURN FOR SACRAL/BUTTOCKS ASSESSMENT. PT NOTED TO HAVE SURGICAL DRESSINGS AND DRAINS TO RT ABDOMEN, SKIN TEAR TO RT ARM AND OPEN BLISTERS WITH WEEPING EDEMA TO LEFT MEDIAL THIGH. SKIN IS QUITE JAUNDICED WITH GENERALIZED EDEMA. RECOMMENDATIONS MADE FOR SKIN PROTECTION. DISCUSSED WITH NURSING STAFF. CURRENT MYCHAL SCORE IS 15. PER NURSING STAFF, THERE IS SCARRING/DISCOLORATION TO SACRAL AREA. WILL SEE PT PT CONDITION PERMITS. MD IN AGREEMENT WITH PLAN OF CARE. Addendum: 10/22/19 at 1009 by MARILU NARVAEZ WNDNU Amended: Links added.
[2019-10-22] MEDS: HYDROCODONE/APAP 5/325MG 1 EACH TABLET PO PRN (10:33)
--- NOTE | 2019-10-22 11:25 | NUR ---
RN NOTES DR. LOVE AT THE UNIT. PATIENT SEEN AND EXAMINED. WITH ORDERS MADE. ORDERS NOTED AND CARRIED OUT. 1130:PATIENT'S CONSENT FOR HIDA SCAN OBTAINED IN LINE WITH DR. LOVE'S NEW ORDERS. IVAN'S. FIDE (SAWMILL RELIEF WORKER) AT BEDSIDE TO TRANSLATE TO THE PATIENT IN POLISH. NO QUESTIONS WERE OBTAINED FROM THE PATIENT AT THIS TIME.
--- NOTE | 2019-10-22 11:35 | NUR ---
MS RN NOTE PATIENT TRANSFERRED FROM ICU. SENEGALESE SPEAKING, A/O X2-3. ON ROOM AIR, RESPIRATION EVEN AND UNLABORED. SKIN ANDS SCLERA ARE JAUNDICE. VALENZUELA CATHETER DRAINING TO GRAVITY DARK ORANGE COLOR URINE. PATIENT HAS LAPAROSCOPY RECENTLY, 3 SURGICAL DRESSING INTACT. DHRUV DRAIN ON RIGHT ABDOMEN. GENERALIZED EDEMA NOTED ON BLE AND BUE. PATIENT REFUSED SKIN ASSESSMENT AND COMPLAINS OF PAIN WHEN WE TRIED TO TURN HER TO ASSESS THE SKIN. ACCORDING TO THE ICU NURSE PATIENT WAS GIVEN PAIN MEDICATION BEFORE GETTING TRANSFERRED TO [facility] FLOOR. SKIN TEAR NOTED ON RIGHT AND LEFT ARM. CLEANED WITH NS, PAT DRY AND MEPILEX APPLIED. SCAB ON RIGHT KNEE. BOTH FEET HAVE SCAB. SKIN DISCOLORATION ON BOTH SHINS. OPEN BLISTER ON LEFT THIGH. WILL ASSESS THE BACK AREA LATER. PATIENT WILL HAVE HIDA SCAN, NPO FOR NOW. SAFETY PRECAUTION IN PLACE. BED LOW AND LOCKED, CALL LIGHT WITHIN REACH, BED ALARM ON. WILL CON' TO MONITOR.
--- NOTE | 2019-10-22 11:40 | NUR ---
RN NOTES PATIENT TRANSFERRED TO ROOM 107. HANDS OFF. REPORT GIVEN TO MICHAEL SANTIAGO
--- NOTE | 2019-10-22 13:01 | NUR ---
PATIENT TAKEN FOR HIDA SCAN.
--- NOTE | 2019-10-22 15:36 | NUR ---
[facility] MEDICATION TO BE GIVEN.
--- NOTE | 2019-10-22 19:16 | NUR ---
MS RN CLOSING NOTE NO SIGNIFICANT CHANGE DURING THE SHIFT. ALL NEEDS ATTENDED. SURGICAL DRESSING INTACT. WOUND CARE DONE. BED LOCKED AND LOW, SIRE RAILS UP X2, BED ALARM ON, CALL LIGHT IN REACH. ENDORSED TO PM NURSE FOR KAREN.
--- NOTE | 2019-10-22 20:00 | NUR ---
RN NOTES PATIENT IN BED, ALERT AND ORIENTED X3, CALM, ROOM AIR, DENIES PAIN AT THIS TIME, ON HIGH SANCHES'S, UNABLE TO TOLERATE HEAD DOWN, UNKEMPT, DISHEVELED, GENERALIZED JAUNDICE INCLUDING SCLERA, SCALP. GENERALIZED EDEMA, RIGHT LOWER QUADRANT DHRUV DRAIN CONNECTED TO LONG TUBE WITH DRAIN, GIBSON COLORED DRAINAGE, VALENZUELA CATHETER DRAINING WITH DARK YELLOW URINE, JOHNY MIDLINE DBL LUMEN AND RFA PERIPHERAL LINE. KEPT SAFE AND COMFORTABLE, WILL CONTINUE TO MONITOR
[2019-10-22] MEDS: IV D5/ 0.9% NACL 1,000 ML IV PRN (21:15)
[2019-10-23 03:30] VITALS: BP 88/50
--- NOTE | 2019-10-23 03:54 | NUR ---
RN NOTES BP 88/50 HR 63 TAKEN X3, SBP HIGH 80'S, GIVEN METOPROLOL PER SET PARAMETERS AT MIDNIGHT, PATIENT ON D5NS AT 75 ML/HR, NO REPORT OF DIZZINESS, HAS DHRUV DRAIN WITH 500 ML OUTPUT AT THIS TIME, NOTIFIED DR. STEINER, NO NEW ORDER, WILL CONTINUE TO MONITOR
[2019-10-23 04:00] VITALS: BP 91/42
[2019-10-23] MEDS: METRONIDAZOLE 500MG/ NS 100ML 500 MG in PREMIX 1 EA IV SCH ×3 (04:10→20:15)
[2019-10-23] MEDS: MEROPENEM 1 G in IV NS 0.9% 100 ML IV SCH ×2 (05:23→16:05)
[2019-10-23] MEDS: METOPROLOL TARTRATE 50 MG TABLET PO SCH ×3 (05:30→17:14)
[2019-10-23 06:19] VITALS: BP 104/45
--- NOTE | 2019-10-23 06:23 | NUR ---
RN NOTES Patient alert and oriented x3, forgetful, calm, on room air, denies pain at this time, with DHRUV drain to right lower quadrant, with clear yellow drainage, reed catheter draining well with brownish to isabella colored urine, continue, contact isolation for Ecoli and ESBL in blood, Merrem, Zyvox, Flagyl, DHRUV drain care, low BP, hold Metoprolol when appropriate
[2019-10-23 07:10] LABS: BASOPHILS # (AUTO) 0.1 /CMM (0.0-0.2); BASOPHILS % (AUTO) 0.3 % (0.0-2.0); EOSINOPHILS % (AUTO) 0.2 % (0.0-6.0); HEMATOCRIT 27 % (33-45); HEMOGLOBIN 9.3 g/dL (11.5-14.8); LYMPHOCYTES # (AUTO) 0.8 /CMM (0.8-4.8); LYMPHOCYTES % (AUTO) 3.9 % (20.0-44.0); MEAN CORPUSCULAR HGB CONC 35 g/dl (31.0-36.0); MEAN CORPUSCULAR VOLUME 102 fL (82-100); MONOCYTES # (AUTO) 1.7 /CMM (0.1-1.30); NEUTROPHILS # (AUTO) 18.5 /CMM (1.8-8.9); NEUTROPHILS % (AUTO) 87.6 % (43.0-81.0); PLATELET COUNT (AUTO) 241 /CMM (150-450); RED BLOOD CELL COUNT(AUTO) 2.63 MIL/uL (4.0-5.2); WHITE BLOOD COUNT (AUTO) 21.1 K/uL (4.3-11.0)
--- NOTE | 2019-10-23 07:30 | NUR ---
RN NOTES Received Patient in bed resting in moderate high back rest. alert and oriented x3, forgetful. no signs of distress noted at this time. noted with DHRUV drain to right lower quadrant, with clear yellow drainage, reed catheter draining well with brownish to isabella colored urine. On contact isolation for Ecoli and ESBL in blood. IV fluids on RFA#20 running @ 75ml/hr and JOHNY midline, sl. patent and intact. safety measures in place, bed in low locked position with side rails upx2. call light within easy reach. Will continue to monitor.
[2019-10-23 07:42] LABS: CALCIUM, SERUM 7.2 mg/dL (8.5-10.1); CREATININE 1.5 mg/dL (0.6-1.3); MAGNESIUM 1.4 mg/dL (1.8-2.4); PHOSPHORUS 4.4 mg/dL (2.5-4.9); POTASSIUM 4.1 mmol/L (3.5-5.1)
[2019-10-23 08:00] VITALS: BP 130/68
[2019-10-23] MEDS: PANTOPRAZOLE 40 MG VIAL IV SCH ×2 (08:11→16:05)
[2019-10-23] MEDS: THIAMINE HCL 100 MG TABLET PO SCH (08:11)
[2019-10-23] MEDS: FOLIC ACID 1 MG TABLET PO SCH (08:11)
[2019-10-23] MEDS: LINEZOLID RTU BAG 600 MG in PREMIX 1 EA IV SCH ×2 (08:11→21:18)
[2019-10-23] MEDS: Magnesium 1GM/D5W 100ML PREMIX 100 ML IV SCH ×3 (12:30→14:36)
[2019-10-23] MEDS: IV D5/ 0.9% NACL 1,000 ML IV PRN (12:38)
[2019-10-23] MEDS ORDERED: LACTULOSE 10 G/15 ML UDC (PYXIS) PO PRN (14:30)
--- NOTE | 2019-10-23 14:30 | NUR ---
RN NOTES Seen and examined by Dr. Suarez with new orders of MRCP wo contrast and Lactulose 30ml Q8H, PRN. orders made and carried out.
--- NOTE | 2019-10-23 18:57 | NUR ---
RN CLOSING NOTES Patient in bed resting in moderate high back rest. alert and oriented x3, forgetful. No signs of distress noted throughout the shift. noted with DHRUV drain to right lower quadrant, with clear yellow drainage, reed catheter draining well with brownish to isabella colored urine. On contact isolation for Ecoli and ESBL in blood. IV fluids on RFA#20 running @ 75ml/hr and JOHNY midline, sl. patent and intact. All nursing needs attended. safety measures in place, bed in low locked position with side rails upx2. call light within easy reach. Will endorse to shift superintendent nurse for jasmyne.
--- NOTE | 2019-10-23 19:20 | NUR ---
RN OPEN NOTES RECEIVED PATIETN AWAKEI N BED. A/OX2-3. NO SIGNS OF DISTRESS OR DISCOMFORT. BREATHING EVEN AND UNLABORED. IV ACCESS IN RFA AND HAS JOHNY MIDLINE WITH D5NS INFUSING, PATENT AND INTACT, NO SIGNS OF REDNESS OR INFILTRATION. HAS F/C INTACT DRAINING CLOUDY TEA COLORED URINE. HAS DHRUV DRAIN IN R UPPER QUADRANT INTACT, DRAINING SEROSANGUINEOUS FLUID. BED IN LOW LOCKED POSITION WITH SIDE RAILS X3. CALL LIGHT WITHIN REACH. WILL CONTINUE TO MONITOR.
[2019-10-23 20:00] VITALS: BP_SYST 93; BP_DIAS 51; BP_DIAS 57
[2019-10-24 04:00] VITALS: BP 89/41
[2019-10-24] MEDS: MEROPENEM 1 G in IV NS 0.9% 100 ML IV SCH ×2 (04:01→16:50)
[2019-10-24] MEDS: METRONIDAZOLE 500MG/ NS 100ML 500 MG in PREMIX 1 EA IV SCH ×3 (05:59→20:41)
[2019-10-24] MEDS: METOPROLOL TARTRATE 50 MG TABLET PO SCH ×5 (06:00→23:14)
[2019-10-24] MEDS: IV D5/ 0.9% NACL 1,000 ML IV PRN (06:02)
[2019-10-24 06:47] LABS: BILIRUBIN,DIRECT 11.3 mg/dL (0.0-0.2); BILIRUBIN,TOTAL 13.4 mg/dL (0.2-1.0); CALCIUM, SERUM 7.3 mg/dL (8.5-10.1); CREATININE 1.8 mg/dL (0.6-1.3); PHOSPHORUS 4.5 mg/dL (2.5-4.9); POTASSIUM 4.1 mmol/L (3.5-5.1)
[2019-10-24 07:27] LABS: BASOPHILS # (AUTO) 0.1 /CMM (0.0-0.2); BASOPHILS % (AUTO) 0.3 % (0.0-2.0); EOSINOPHILS % (AUTO) 0.7 % (0.0-6.0); HEMATOCRIT 25 % (33-45); HEMOGLOBIN 8.8 g/dL (11.5-14.8); LYMPHOCYTES % (AUTO) 4.5 % (20.0-44.0); MEAN CORPUSCULAR HGB CONC 35 g/dl (31.0-36.0); MEAN CORPUSCULAR VOLUME 102 fL (82-100); MONOCYTES # (AUTO) 1.3 /CMM (0.1-1.30); MONOCYTES % (AUTO) 5.8 % (2.0-12.0); NEUTROPHILS % (AUTO) 88.7 % (43.0-81.0); PLATELET COUNT (AUTO) 198 /CMM (150-450); RED BLOOD CELL COUNT(AUTO) 2.47 MIL/uL (4.0-5.2); WHITE BLOOD COUNT (AUTO) 22.6 K/uL (4.3-11.0)
--- NOTE | 2019-10-24 07:44 | NUR ---
RN CLOSING NOTES PATIENT RESTING COMFORTABLY IN BED, EASILY AROUSABLE. A/OX2-3. NO SIGNS OF DISTRESS OR DISCOMFORT. BREATHING EVEN AND UNLABORED. IV ACCESS IN RFA AND HAS JOHNY MIDLINE WITH D5NS INFUSING, PATENT AND INTACT, NO SIGNS OF REDNESS OR INFILTRATION. HAS F/C INTACT DRAINING CLOUDY TEA COLORED URINE. HAS DHRUV DRAIN IN R UPPER QUADRANT INTACT, DRAINING SEROSANGUINEOUS FLUID. ALL NEEDS MET. NO SIGNIFICANT CHANGES THROUGH THE NIGHT. PATIENT KEPT CLEAN DRY AND COMFORTABLE. ASSISTED WITH REPOSITIONING Q2H AND PRN. BED IN LOW LOCKED POSITION WITH SIDE RAILS X3. CALL LIGHT WITHIN REACH. ENDORSED TO AM SHIFT FOR KAREN.
--- NOTE | 2019-10-24 07:45 | NUR ---
RN OPENING NOTES RECEIVED PATIENT AWAKE IN BED. A/OX2-3. NO SIGNS OF DISTRESS OR DISCOMFORT. BREATHING EVEN AND UNLABORED. IV ACCESS IN RFA AND HAS JHONY MIDLINE WITH D5NS INFUSING @ 75ML/HR, PATENT AND INTACT, NO SIGNS OF REDNESS OR INFILTRATION. HAS F/C INTACT DRAINING CLOUDY TEA COLORED URINE. HAS DHRUV DRAIN IN R UPPER QUADRANT INTACT, DRAINING SEROSANGUINEOUS FLUID. BED IN LOW LOCKED POSITION WITH SIDE RAILS X3. CALL LIGHT WITHIN REACH. WILL CONTINUE TO MONITOR.
[2019-10-24 08:27] LABS: BAND % (MANUAL) 2 % (0.0-5.0); LYMPHOCYTES % (MANUAL) 4 % (16-48); MONOCYTES % (MANUAL) 4 % (0-11.0); NEUTROPHILS % (MANUAL) 90 (42-76)
--- NOTE | 2019-10-24 08:40 | NUR ---
MS nurse , was notified re; b/p 85/34 waiting for returning call back patient awake and Asymtomatic no signs of distress noted at present time
[2019-10-24 08:46] VITALS: BP 85/34
[2019-10-24] MEDS ORDERED: IV NS 0.9% 500 ML IV ONE (09:30)
[2019-10-24] MEDS: PANTOPRAZOLE 40 MG VIAL IV SCH ×2 (09:40→16:53)
[2019-10-24] MEDS: LINEZOLID RTU BAG 600 MG in PREMIX 1 EA IV SCH ×2 (09:40→21:43)
[2019-10-24] MEDS: FOLIC ACID 1 MG TABLET PO SCH (09:45)
[2019-10-24] MEDS: THIAMINE HCL 100 MG TABLET PO SCH (09:45)
--- NOTE | 2019-10-24 10:00 | NUR ---
rechecked bp= 95/49, after 500 NS iv bolus given as ordered.
[2019-10-24 10:15] VITALS: BP 95/49
[2019-10-24] MEDS: HYDROCODONE/APAP 5/325MG 1 EACH TABLET PO PRN ×2 (13:00→21:06)
[2019-10-24 16:00] VITALS: BP 95/31
--- NOTE | 2019-10-24 16:30 | NUR ---
rn notes Albumin 1.0, notified DR Reynaldo Cuevas. no new orders at this time.
--- NOTE | 2019-10-24 19:15 | NUR ---
RN medsur opening notes Received Pt from morning nurse. Pt is sitting in bed comfortably watching TV. Respiration is normal. No SOB. No nausea or vomiting. Pt denies any pain or discomfort. JOHNY midline is clean, intact and patent. RFA# 20 is clean, intact, and patent. DHRUV drain R upper quadrant intact, patent and draining purulent clear with little sediment. Charge nurse MICHAEL Brito is aware and informed. Generalized edema and generalized jaundice. Per am nurse is aware and informed. Garcia cath is intact, patent and draining tea colored urine. Pt has a poor appetite. Encouraged and instructed Pt to eat. Pt's albumin is 1.0 MD is aware and informed and no orders received per AM nurse. Contact precautions is maintained for Ecoli and ESBL blood. Instructed to call. Safety precautions is maintained. Bed at low poition, brakes locked, side rails upX3 and call light is within reach. Will continue to monitor.
--- NOTE | 2019-10-24 19:19 | NUR ---
RN CLOSING NOTES PATIENT IN STABLE CONDITION. ALL NEEDS ATTENDED AND PROVIDED. ALL DUE MEDS GIVEN ORDERED. KEPT PATIENT SAFE AND COMFORTABLE. TURNED AND REPOSITIONED PATIENT EVERY 2HR NEEDED. WOUND CARE RENDERED. BED IN LOW/LOCKED POSITION, SIDERAILS UPX2, CALL LIGHT IN REACH. ENDORSED TO NIGHT RN FOR KAREN.
[2019-10-24 20:00] VITALS: BP 101/43
--- NOTE | 2019-10-24 21:07 | NUR ---
RN medsurwillis notes Pt is complaining of pain on right abdomen. Administered norco5-325mg/1 tab/PO as ordered for abdominal pain 8/10 on pain scale. VS is stable. Instructed to call. Safety precautions is maintained. Will continue to monitor.
[2019-10-24 23:00] VITALS: BP 97/40
--- NOTE | 2019-10-24 23:14 | NUR ---
MICHAEL taveras notes Did not administered Lopressor 50 mg/1 tab/PO because of decreased BP. BP 97/40, pulse 76, temp 97.5, resp 18, O2 sat is 100%. Will continue to monitor.
[2019-10-25 04:00] VITALS: BP 95/44
[2019-10-25] MEDS: MEROPENEM 1 G in IV NS 0.9% 100 ML IV SCH ×2 (04:01→17:27)
[2019-10-25] MEDS: METRONIDAZOLE 500MG/ NS 100ML 500 MG in PREMIX 1 EA IV SCH ×2 (04:35→12:26)
[2019-10-25 05:06] VITALS: BP 94/40
[2019-10-25] MEDS: METOPROLOL TARTRATE 50 MG TABLET PO SCH ×4 (05:07→23:55)
[2019-10-25 06:28] LABS: BASOPHILS % (AUTO) 0.1 % (0.0-2.0); EOSINOPHILS % (AUTO) 0.8 % (0.0-6.0); HEMATOCRIT 24 % (33-45); HEMOGLOBIN 8.1 g/dL (11.5-14.8); LYMPHOCYTES # (AUTO) 0.9 /CMM (0.8-4.8); LYMPHOCYTES % (AUTO) 3.4 % (20.0-44.0); MEAN CORPUSCULAR HGB CONC 34 g/dl (31.0-36.0); MEAN CORPUSCULAR VOLUME 104 fL (82-100); MONOCYTES # (AUTO) 1.3 /CMM (0.1-1.30); MONOCYTES % (AUTO) 4.8 % (2.0-12.0); NEUTROPHILS # (AUTO) 23.7 /CMM (1.8-8.9); NEUTROPHILS % (AUTO) 90.9 % (43.0-81.0); PLATELET COUNT (AUTO) 191 /CMM (150-450); RED BLOOD CELL COUNT(AUTO) 2.32 MIL/uL (4.0-5.2); WHITE BLOOD COUNT (AUTO) 26.1 K/uL (4.3-11.0)
[2019-10-25 06:41] LABS: CALCIUM, SERUM 7.7 mg/dL (8.5-10.1); CREATININE 1.9 mg/dL (0.6-1.3); MAGNESIUM 1.9 mg/dL (1.8-2.4); PHOSPHORUS 5.7 mg/dL (2.5-4.9); POTASSIUM 4.8 mmol/L (3.5-5.1)
--- NOTE | 2019-10-25 07:00 | NUR ---
RN medsurg closing notes Pt is resting in bed comfortably. Awaken easily. Respiration is normal. No SOB. No Nausea or vomiting. No S/S of distress noted. JOHNY midline is clean, intact and patent. RFA # 20 is clean, intact and patent. Garcia cath is intact, patent and draining tea color urine 140 ml. DHRUV drain is intact, patent and draining purulent with a little sediment 290 ml. Wound care and skin care provided. Routine meds were given as ordered. Turned and repositioned Q 2hr. Kept Pt clean, dry, warm and comfortable. Contact precautions is maintained. Safety precautions is maintained. Bed at low position, brakes locked, side rails upX3 and call light is within reach. Will endorse to morning nurse for KAREN.
--- NOTE | 2019-10-25 07:20 | NUR ---
MS RN OPENING NOTES RECEIVED PATIENT ALERT AND AWAKE ORIENTED X2-3. NO SOB. DENIES ANY C/O PAIN NOR DISCOMFORT AT THIS TIME. JOHNY MIDLINE INTACT AND PATENTINFUSING D5 NS @ 75ML/HR LILLY WELL. BED IN LOWEST POSITION, LOCKED. CALL LIGHT WITHIN REACH. VALENZUELA CATH INTACT DRAINING GIBSON COLORED URINE. DHRUV INTACT DRAINING YELLOW WITH SEDIMENTS VIA BEDSIDE.
--- NOTE | 2019-10-25 07:53 | NUR ---
MS RN NOTES BS 42MG/DL DR. Owens MADE AWARE WITH ORDER FOR D50 GIVEN VIA JOHNY MIDLINE LILLY WELL. PATIENT VERBALLY RESPONSIVE. ABLE TO CONVERSE. DENIES ANY C/O PAIN NOR DISCOMFORT AT THIS TIME. WILL CONTINUE TO MONITOR.
[2019-10-25] MEDS ORDERED: DEXTROSE 50%-WATER 50 ML DISP.SYRIN ONE (07:58)
[2019-10-25 08:00] VITALS: BP 98/55
[2019-10-25] MEDS ORDERED: DEXTROSE 50%-WATER 50 ML DISP.SYRIN IVP PRN (08:30)
[2019-10-25] MEDS ORDERED: DEXTROSE 50%-WATER 50 ML DISP.SYRIN IVP ONE (08:30)
--- NOTE | 2019-10-25 08:30 | NUR ---
MS RN NOTES BS RECHECK 120MG/DL
[2019-10-25] MEDS: THIAMINE HCL 100 MG TABLET PO SCH (08:56)
[2019-10-25] MEDS: PANTOPRAZOLE 40 MG VIAL IV SCH ×2 (08:56→17:27)
[2019-10-25] MEDS: FOLIC ACID 1 MG TABLET PO SCH (08:56)
[2019-10-25] MEDS: LINEZOLID RTU BAG 600 MG in PREMIX 1 EA IV SCH (08:57)
--- NOTE | 2019-10-25 10:32 | NUR ---
MS RN NOTES PATIENT OFF UNIT FOR CT OF ABD WITHOUT CONTRAST. LEFT UNIT IN STABLE CONDITION.
[2019-10-25] MEDS: IV D5/ 0.9% NACL 1,000 ML IV PRN (11:11)
[2019-10-25 16:00] VITALS: BP 116/56
--- NOTE | 2019-10-25 18:58 | NUR ---
MS RN CLOSING NOTES NOTES PATIENT RESTING COMFORTABLY IN BED. NO SOB. DENIES ANY C/O PAIN NOR DISCOMFORT AT THIS TIME. JOHNY MIDLINE INTACT AND PATENT INFUSING D5 NS @ 75ML/HR LILLY WELL. REQUIRES ENCOURAGE WITH MEAL INTAKE. BED IN LOWEST POSITION, LOCKED. CALL LIGHT WITHIN REACH. VALENZUELA CATH INTACT DRAINING GIBSON/TEA COLORED URINE. DHRUV INTACT DRAINING YELLOW WITH SEDIMENTS VIA BEDSIDE. BED IN LOWEST POSITION, LOCKED. CALL LIGHT WITHIN REACH. IN NO APPARENT DISTRESS
--- NOTE | 2019-10-25 19:20 | NUR ---
RN Notes Received patient awake, alert and oriented x2-3 , HOB elevated, on room air and tolerated well. Patient is with genaralized edema and jaundice. Right upper arm midline intact with ongoing IVF infusing well. DHRUV drain intact with clear yellow out put, noted soaked dressing, leaking DHRUV site per report MD aware. Garcia cath intact to gravity with brown colored urine output. Safety measures and fall precaution observed with call light within reach. Will continue to monitor patient.
[2019-10-26] MEDS: MEROPENEM 1 G in IV NS 0.9% 100 ML IV SCH ×2 (04:57→16:54)
[2019-10-26] MEDS: METOPROLOL TARTRATE 50 MG TABLET PO SCH ×4 (05:58→23:23)
[2019-10-26 06:34] LABS: BILIRUBIN,TOTAL 16.2 mg/dL (0.2-1.0); CALCIUM, SERUM 7.9 mg/dL (8.5-10.1); POTASSIUM 4.1 mmol/L (3.5-5.1); TOTAL PROTEIN, SERUM 4.2 g/dL (6.4-8.2)
[2019-10-26 06:41] LABS: BASOPHILS # (AUTO) 0.1 /CMM (0.0-0.2); BASOPHILS % (AUTO) 0.2 % (0.0-2.0); LYMPHOCYTES # (AUTO) 0.8 /CMM (0.8-4.8)
[2019-10-26 06:46] LABS: EOSINOPHILS % (AUTO) 1.4 % (0.0-6.0); HEMATOCRIT 26 % (33-45); HEMOGLOBIN 8.7 g/dL (11.5-14.8); LYMPHOCYTES % (AUTO) 2.8 % (20.0-44.0); MEAN CORPUSCULAR HGB CONC 34 g/dl (31.0-36.0); MEAN CORPUSCULAR VOLUME 102 fL (82-100); MONOCYTES % (AUTO) 3.5 % (2.0-12.0); NEUTROPHILS # (AUTO) 25.3 /CMM (1.8-8.9); NEUTROPHILS % (AUTO) 92.1 % (43.0-81.0); PLATELET COUNT (AUTO) 151 /CMM (150-450); RED BLOOD CELL COUNT(AUTO) 2.51 MIL/uL (4.0-5.2); WHITE BLOOD COUNT (AUTO) 27.5 K/uL (4.3-11.0)
--- NOTE | 2019-10-26 07:06 | NUR ---
RN Notes Patient sleep on and off overnight, vital signs stable, afebrile. Denies any pain and discomfort. DHRUV drain intact, site leaking, dressing change. Garcia cath intact to gravity. Turned and reposition per protocol. Safety measures and fall precaution observed. No significant change in condition noted. All needs attended. Will endorse accordingly.
[2019-10-26] MEDS: IV D5/ 0.9% NACL 1,000 ML IV PRN (07:56)
[2019-10-26 08:00] VITALS: BP 144/65
--- NOTE | 2019-10-26 08:00 | NUR ---
MS/RN - Assessment Patient is awake, A/O x 2-3, calm and cooperative, afebrile, denies pain, no apparent distress, stable on room air, noted with generalized edema and persistent jaundice. Right upper arm midline in place, IVF infusing well. DHRUV drain intact with bilious output, leaking DHRUV bag, MD aware. Garcia cath intact to gravity with brown colored urine output. Fall and contact isolation observed for ESBL blood. Will continue with current plan of care.
[2019-10-26] MEDS: THIAMINE HCL 100 MG TABLET PO SCH (08:25)
[2019-10-26] MEDS: FOLIC ACID 1 MG TABLET PO SCH (08:25)
[2019-10-26] MEDS: PANTOPRAZOLE 40 MG VIAL IV SCH ×2 (08:26→16:54)
[2019-10-26] MEDS ORDERED: TPN/PPN PER PHARMACY XX PRN (11:00)
--- NOTE | 2019-10-26 15:35 | NUR ---
MS/RN - Urine specimen Urine specimen obtained from reed port and was sent to the lab as ordered.
[2019-10-26 16:00] VITALS: BP 133/70
[2019-10-26 17:35] LABS: APPEARANCE,URINE SL CLOUDY (CLEAR); BILIRUBIN,URINE LARGE (NEGATIVE); BLOOD, URINE LARGE Ery/uL (NEGATIVE); COLOR,URINE DARK YELLO (YELLOW); KETONES,URINE TRACE (NEGATIVE); LEUKOCYTE ESTERASE ,URINE TRACE (NEGATIVE); NITRITE, URINE NEGATIVE (NEGATIVE); PROTEIN,URINE TRACE mg/dl (NEGATIVE); UGLUCOSE 100 MG/DL mg/dL (NEGATIVE); UROBILINOGEN,URINE 0.2 EU/dL (0.2)
[2019-10-26 17:47] LABS: CREATININE, URINE 63.3 MG/DL (30.0-125.0); URINE TOTAL PROTEIN 62.5 mg/dL (0-11.9)
[2019-10-26 17:56] LABS: RBC,URINE 20-40 /HPF (0-2); YEAST,URINE Few /HPF (None Seen)
[2019-10-26 17:57] LABS: BACTERIA,URINE Few /HPF (None Seen); SQUAMOUS EPITHELIAL CELL,UR Rare /HPF (None Seen)
--- NOTE | 2019-10-26 18:21 | NUR ---
MS/RN - End of shift summary No significant change in condition seen, still with poor appetite, no n/v, denies abdominal pain. Patient signed the consent for PICC line, will start TPN once PICC line in place. DHRUV drain with bilious output, total this shift was 450 ml. All needs attended. Continue Merrem for UTI. Will endorse night RN accordingly.
--- NOTE | 2019-10-26 19:30 | NUR ---
MS RN NOTE: RECEIVED PT ON BED ALERT AND ORIENTED X2. NO ACUTE DISTRESS NOTED. NO COMPLAINTS OF PAIN OR DISCOMFORT AT THIS TIME. ON ROOM AIR, BREATHING EVEN AND UNLABORED WITH NORMAL RESPIRATIONS. RIGHT UPPER ARM MIDLINE INTACT AND PATENT, FLUSHING WELL. VALENZUELA CATH INTACT AND DRAINING WELL. KEPT CLEAN, DRY AND COMFORTABLE. CALL LIGHT PLACED WITHIN REACH. SAFETY AND FALL PRECAUTIONS OBSERVED AND MAINTAINED. WILL CONTINUE TO MONITOR PT.
[2019-10-26 20:00] VITALS: BP 94/59
--- NOTE | 2019-10-27 02:11 | NUR ---
MS RN NOTE RECEIVED PT IN STABLE CONDITION A/O X2, CURRENTLY RESTING IN BED. NO SIGNS OF SOB OR DISTRESS, NO INDICATIONS OF PAIN OR N/V. DHRUV DRAIN NOTED WITH MINIMAL DRAINAGE, VALENZUELA NOTED WITH ADEQUATE URINE DRAINING. JOHNY PICC LINE IN PLACE SL. ALL CURRENT NEEDS ATTENDED TO. BED LOW, LOCKED, UPPER RAILS UP, ISOLATIONS PRECAUTIONS IN PLACE, AND CALL LIGHT WITHIN REACH. WILL CONT. TO MONITOR.
[2019-10-27] MEDS: MEROPENEM 1 G in IV NS 0.9% 100 ML IV SCH ×2 (04:12→16:00)
[2019-10-27 04:31] VITALS: BP 104/58
[2019-10-27] MEDS: METOPROLOL TARTRATE 50 MG TABLET PO SCH ×4 (05:17→23:23)
--- NOTE | 2019-10-27 06:20 | NUR ---
MS RN NOTE PT REMAINS IN STABLE CONDITION A/O X2, CURRENTLY RESTING IN BED. NO SIGNS OF SOB OR DISTRESS, NO INDICATIONS OF PAIN OR N/V. DHRUV DRAIN NOTED WITH 175 ML OUT, VALENZUELA NOTED [id number] ML OF YELLOW URINE DRAINING. JOHNY PICC LINE IN PLACE SL. ALL CURRENT NEEDS ATTENDED TO. BED LOW, LOCKED, UPPER RAILS UP, ISOLATIONS PRECAUTIONS IN PLACE, AND CALL LIGHT WITHIN REACH. WILL CONT. TO MONITOR AND ENDORSE TO NEXT SHIFT FOR KAREN.
[2019-10-27 06:22] LABS: APPEARANCE,URINE SL CLOUDY (CLEAR); BILIRUBIN,URINE LARGE (NEGATIVE); BLOOD, URINE LARGE Ery/uL (NEGATIVE); COLOR,URINE DARK YELLO (YELLOW); KETONES,URINE TRACE (NEGATIVE); LEUKOCYTE ESTERASE ,URINE TRACE (NEGATIVE); NITRITE, URINE NEGATIVE (NEGATIVE); PROTEIN,URINE TRACE mg/dl (NEGATIVE); UGLUCOSE NEGATIVE (NEGATIVE); UROBILINOGEN,URINE 0.2 EU/dL (0.2)
[2019-10-27 06:31] LABS: URINE TOTAL PROTEIN 62.4 mg/dL (0-11.9)
[2019-10-27 06:33] LABS: BILIRUBIN,DIRECT 13.1 mg/dL (0.0-0.2); BILIRUBIN,TOTAL 16.2 mg/dL (0.2-1.0); CALCIUM, SERUM 7.8 mg/dL (8.5-10.1); CREATININE 2.1 mg/dL (0.6-1.3); MAGNESIUM 1.8 mg/dL (1.8-2.4); PHOSPHORUS 6.3 mg/dL (2.5-4.9); POTASSIUM 3.7 mmol/L (3.5-5.1)
[2019-10-27 06:37] LABS: BACTERIA,URINE Rare /HPF (None Seen); RBC,URINE 21-50 /HPF (0-2); SQUAMOUS EPITHELIAL CELL,UR Few /HPF (None Seen); YEAST,URINE Many /HPF (None Seen)
[2019-10-27 06:38] LABS: ALBUMIN 0.9 g/dL (3.4-5.0)
--- NOTE | 2019-10-27 06:38 | NUR ---
MS RN NOTE CRITICAL LAB OF ALBUMIN 0.9, CALLED [facility] PROC TECH AKASH. AWAITING CALL BACK.
[2019-10-27 06:50] LABS: BASOPHILS # (AUTO) 0.1 /CMM (0.0-0.2); BASOPHILS % (AUTO) 0.2 % (0.0-2.0); EOSINOPHILS % (AUTO) 0.5 % (0.0-6.0); HEMATOCRIT 24 % (33-45); HEMOGLOBIN 8.2 g/dL (11.5-14.8); LYMPHOCYTES # (AUTO) 0.8 /CMM (0.8-4.8); LYMPHOCYTES % (AUTO) 2.7 % (20.0-44.0); MEAN CORPUSCULAR HGB CONC 35 g/dl (31.0-36.0); MEAN CORPUSCULAR VOLUME 101 fL (82-100); MONOCYTES # (AUTO) 0.9 /CMM (0.1-1.30); NEUTROPHILS # (AUTO) 27.4 /CMM (1.8-8.9); NEUTROPHILS % (AUTO) 93.6 % (43.0-81.0); PLATELET COUNT (AUTO) 164 /CMM (150-450); RED BLOOD CELL COUNT(AUTO) 2.34 MIL/uL (4.0-5.2); WHITE BLOOD COUNT (AUTO) 29.3 K/uL (4.3-11.0)
--- NOTE | 2019-10-27 07:10 | NUR ---
RN OPENING NOTE PT WAS RECEIVED IN BED AT LOWEST AND LOCKED POSITION WITH SIDE RAILS UP X2, A/O X2 BELARUSIAN SPEAKING/FORGETFUL, BREATHING EVEN AND UNLABORED ON RA, NO CURRENT S/S OF ANY DISTRESS OR PAIN NOTED AT THIS TIME, PICC LINE IS PATENT AND INTACT, INFORMED BY NIGHT RN SALVATORE THAT CASH APPLICATION REPRESENTATIVE WAS PAGED REGARDING CRITICAL ALBUMIN JUST AWAITING CALL BACK, VALENZUELA IN PLACE DRAINING AND DHRUV DRAIN IN PLACE DRAINING, SAFETY PRECAUTIONS IN PLACE, CALL LIGHT IN REACH, WILL MONITOR ACCORDINGLY
[2019-10-27 07:14] LABS: EOSINOPHIL,URINE None Seen
--- NOTE | 2019-10-27 07:21 | NUR ---
MS RN NOTE DR. WEEMS MADE AWARE OF CRITICAL RESULTS, NO NEW ORDERS AT THIS TIME. WILL ENDORSE TO NEXT SHIFT FOR KAREN.
--- NOTE | 2019-10-27 07:58 | NUR ---
RN NOTE PT FINGER STICK BG WAS TAKEN AND NOTED TO BE 45, CIVIL PREPAREDNESS TRAINING OFFICER SOON MADE AWARE, MESSAGE TO WHO ORDER D50% DEXTROSE IVP, WILL ADMIN. DR. CABRERA STATED HE WILL COME SEE PT. HE WAS ALSO MADE OF AWARE OF BP BEING LOW 88/59 WITH NO ORDERS FOR IVF AT THIS TIME, WILL CONTINUE TO MONITOR
[2019-10-27 08:00] VITALS: BP 88/59
[2019-10-27] MEDS: FOLIC ACID 1 MG TABLET PO SCH (08:12)
[2019-10-27] MEDS: THIAMINE HCL 100 MG TABLET PO SCH (08:12)
[2019-10-27] MEDS: PANTOPRAZOLE 40 MG VIAL IV SCH ×2 (08:13→16:00)
--- NOTE | 2019-10-27 08:22 | NUR ---
MS NURSE, blood sugar 46 no ivf. discussed with and orders given and carried out D50 1 AMP ivp given and stated that will see her this morning TPN was ordered will ready by pharmacy
--- NOTE | 2019-10-27 09:06 | NUR ---
RN NOTE PT BLOOD SUGAR WAS RETAKEN 30 MINUTES AFTER ADMINISTRATION OF IV DEXTROSE AND NOTED TO BE 102, WILL CONTINUE TO MONITOR
--- NOTE | 2019-10-27 11:14 | NUR ---
RN NOTE PHARMACY WAS CALLED REGARDING TPN, INFORMED BY PHARMACIST JAMES THAT THEY ARE WORKING ON IT AND COORDINATING WITH DOCTORS AND WILL SEND IT ONCE IT IS READY, WILL CONTINUE TO MONITOR APPARENTLY
--- NOTE | 2019-10-27 11:43 | NUR ---
RN NOTE HALLE FROM PHARMACY CAME DOWN TO SPEAK WITH ME AND STATED THEY DO NOT FEEL COMFORTABLE STARTING TPN UNTIL SEEN BY RENAL. CHARGE SOON MADE AWARE AND AGREED TO WAIT UNTIL SEEN BY RENAL, WILL CONTINUE TO MONITOR AT THIS TIME
--- NOTE | 2019-10-27 11:50 | NUR ---
RN NOTE BLOOD SUGAR WAS TAKEN AT THIS TIME AND NOTED TO BE 71, WILL CONTINUE TO MONITOR
[2019-10-27 12:01] VITALS: BP 82/37
[2019-10-27] MEDS ORDERED: FEE PK DOSING 1 MIN EA MC ONE (13:58)
[2019-10-27] MEDS ORDERED: FEE TPN 1 MIN EA MC ONE (13:59)
[2019-10-27] MEDS ORDERED: TPN BAG #1 IV PRN ×7 (14:00)
[2019-10-27] MEDS ORDERED: DEXTROSE 50%-WATER 50 ML DISP.SYRIN IV PRN (14:00)
[2019-10-27 16:00] VITALS: BP 80/42
[2019-10-27] MEDS: BLOOD SUGAR DIAGNOSTIC 1 EACH STRIP IN SCH ×2 (18:08→23:23)
--- NOTE | 2019-10-27 18:35 | NUR ---
RN NOTE TPN STARTED AT THIS TIME
--- NOTE | 2019-10-27 18:40 | NUR ---
RN CLOSING NOTE PT IN BED AT LOWEST AND LOCKED POSITION WITH SIDE RAILS UP X2, A/O X2 FRISIAN SPEAKING/FORGETFUL, BREATHING EVEN AND UNLABORED ON RA, NO CURRENT S/S OF ANY DISTRESS OR PAIN NOTED AT THIS TIME, PICC LINE IS PATENT AND INTACT, VALENZUELA IN PLACE DRAINING AND DHRUV DRAIN IN PLACE DRAINING, SAFETY PRECAUTIONS IN PLACE, CALL LIGHT IN REACH, ALL NEEDS ATTENDED TO, WILL ENDORSE TO NIGHT RN FOR KAREN.
--- NOTE | 2019-10-27 19:30 | NUR ---
ms juvenal initial notes received report from am nurse Jacob while doing our rounds and seen pt in bed awake and alert watching TV at this time, not in any acute distress noted. Pt still on TPN infusing on her PICC line right upper arm. she still with DHRUV draining clear yellow output noted. and with reed cath draining tea colored output. pt denies any pain or any discomfort. kept her warm and comfortable at all times. on semi fowlers position with side rails up and bed in low and lock in position. place call light at reach. will continue monitoring.
[2019-10-27 20:00] VITALS: BP 95/41
[2019-10-27] MEDS: ONDANSETRON HCL/PF 4 MG/2 ML VIAL IV PRN (20:31)
[2019-10-27 20:34] VITALS: BP 95/41
[2019-10-27] MEDS: INSULIN REGULAR, HUMAN 100 UNIT/ML 3 ML VIAL SQ PRN (23:24)
--- NOTE | 2019-10-27 23:25 | NUR ---
MS COMMUNITY HEALTH NAVIGATOR NOTES BLOOD SUGAR CHECKED DONE 80, NO INSULIN DUE AT THIS TIME. PT IS AWAKE AND ALERT. DENIES ANY PAIN OR ANY DISCOMFORT. NO SIGNS OF HYPO GLYCEMIA NOTED. APPLE JUICE SERVED. WILL CONTINUE MONITORING.
[2019-10-28] VITALS (53 sets, daily range): BP systolic 84–111; BP diastolic 24–63
[2019-10-28] MEDS ORDERED: ALTEPLASE CATHFLO 2 MG/VIAL XX ONE (02:00)
[2019-10-28] MEDS: MEROPENEM 1 G in IV NS 0.9% 100 ML IV SCH ×2 (04:12→17:16)
[2019-10-28] MEDS: METOPROLOL TARTRATE 50 MG TABLET PO SCH ×3 (06:00→17:16)
[2019-10-28] MEDS: BLOOD SUGAR DIAGNOSTIC 1 EACH STRIP IN SCH ×3 (06:18→17:15)
--- NOTE | 2019-10-28 06:19 | NUR ---
ms womens volleyball coach notes blood sugar checked done 87, no insulin due at this time. PT still on TPN infusing at 40ml/hr. No signs of hypo glcyemia noted.
[2019-10-28 06:29] LABS: BASOPHILS # (AUTO) 0.1 /CMM (0.0-0.2); BASOPHILS % (AUTO) 0.5 % (0.0-2.0); EOSINOPHILS % (AUTO) 0.6 % (0.0-6.0); HEMATOCRIT 24 % (33-45); HEMOGLOBIN 8.3 g/dL (11.5-14.8); LYMPHOCYTES # (AUTO) 0.7 /CMM (0.8-4.8); LYMPHOCYTES % (AUTO) 2.4 % (20.0-44.0); MEAN CORPUSCULAR HGB CONC 34 g/dl (31.0-36.0); MEAN CORPUSCULAR VOLUME 102 fL (82-100); MONOCYTES # (AUTO) 1.1 /CMM (0.1-1.30); MONOCYTES % (AUTO) 3.4 % (2.0-12.0); NEUTROPHILS # (AUTO) 28.8 /CMM (1.8-8.9); NEUTROPHILS % (AUTO) 93.1 % (43.0-81.0); PLATELET COUNT (AUTO) 142 /CMM (150-450); RED BLOOD CELL COUNT(AUTO) 2.34 MIL/uL (4.0-5.2)
[2019-10-28 06:35] LABS: CALCIUM, SERUM 7.8 mg/dL (8.5-10.1); CREATININE 2.6 mg/dL (0.6-1.3); PHOSPHORUS 6.7 mg/dL (2.5-4.9); POTASSIUM 3.7 mmol/L (3.5-5.1)
[2019-10-28 06:42] LABS: WHITE BLOOD COUNT (AUTO) 30.9 K/uL (4.3-11.0)
[2019-10-28 06:51] LABS: BILIRUBIN,DIRECT 13.8 mg/dL (0.0-0.2); BILIRUBIN,TOTAL 18.1 mg/dL (0.2-1.0); TOTAL PROTEIN, SERUM 4.3 g/dL (6.4-8.2)
--- NOTE | 2019-10-28 06:56 | NUR ---
MS RHYTHMIC GYMNASTICS COACH CLOSING NOTES PT SLEEPING AT THIS TIME. NO SIGNS OF ANY ACUTE DISTRESS NOTED. STILL BP IS LOW AND CONTINUE MONITORING. PT STILL ON TPN AT 40ML/HR. VALENZUELA TO GRAVITY AND DHRUV WELL. BLOOD SUGAR CHECKED DONE 87, NO SIGNS OF HYPO GLYCEMIA NOTED. ALL DUE MEDS GIVEN CHARGE NURSE .KEPT HER WARM AND COMFORTABLE AT ALL TIMES. ENDORSE TO AM NURSE FOR CONTINUITY OF CARE.
[2019-10-28 07:18] LABS: LYMPHOCYTES % (MANUAL) 2 % (16-48); MONOCYTES % (MANUAL) 3 % (0-11.0); NEUTROPHILS % (MANUAL) 95 (42-76)
[2019-10-28] MEDS ORDERED: TPN BAG #2 IV PRN ×7 (08:00)
--- NOTE | 2019-10-28 08:00 | NUR ---
FLAKITA/FUNERAL LIMOUSINE DRIVER TO ICU RECEIVED PT FROM PM NURSE. DR. RICK SCOTT, RECEIVED VERBAL ORDER TO TRANSFER PT TO ICU. PT TRANSFERRED TO ICU ROOM 252, REPORT GIVEN TO ICU NURSE. ENDORSED TO CONTINUE CARE.
--- NOTE | 2019-10-28 08:03 | NUR ---
RN INITIAL NOTES RECEIVED PT AWAKE, A/0X2. SWISS SPEAKING, UNDERSTANDS ITALIAN. ON ROOM AIR. NO RESPIRATORY DISTRESS NOTED. NO SOB NOTED. DENIES ANY PAIN. PT CONNECTED TO MONITOR. BP ON 90S. JOHNY PICC IN PLACE. TPN INFUSING. TOLERATING WELL. RIGHT DHRUV DRAIN IN PLACE. FC IN PLACE. PT'S WBC 30.9, AFEBRILE. DR CABRERA AWARE OF TRANSFER. WILL CLOSELY MONITOR.
[2019-10-28] MEDS: THIAMINE HCL 100 MG TABLET PO SCH (08:45)
[2019-10-28] MEDS: ALBUMIN 25% 25 GM in PREMIX 1 EA IV SCH ×3 (08:45→19:39)
[2019-10-28] MEDS: PANTOPRAZOLE 40 MG VIAL IV SCH ×2 (08:45→16:02)
[2019-10-28] MEDS: FOLIC ACID 1 MG TABLET PO SCH (08:45)
[2019-10-28] MEDS: NOREPINEPHRINE 16 MG in IV D5W 500 ML IV PRN (10:43)
[2019-10-28 12:06] LABS: PTH, INTACT 20 pg/mL (15-65)
[2019-10-28] MEDS ORDERED: FEE PK DOSING 1 MIN EA MC ONE (14:52)
[2019-10-28] MEDS: VANCOMYCIN 0.75 GM in IV D5W 250 ML IV SCH (15:57)
[2019-10-28] MEDS ORDERED: FLUCONAZOLE IN NS 100 MG in PREMIX 1 EA IV SCH ×2 (17:00)
--- NOTE | 2019-10-28 18:17 | NUR ---
RN CLOSING NOTES PT REMAINS A/O. ON ROOM AIR. NO RESPIRATORY DISTRESS NOTED. NO SOB NOTED. DENIES ANY PAIN. PICC IN PLACE. LEVO AT 5MCG/MIN. MAP CLOSELY MONITORED. TPN INFUSING. DHRUV DRAIN AND VALENZUELA IN PLACE. KEPT CLEAN AND DRY. REPOSITIONING Q2. BLE ELEVATED. CALL LIGHT WITHIN REACH. WILL ENDORSE FOR CONTINUITY OF CARE.
--- NOTE | 2019-10-28 19:45 | NUR ---
ICU/RECREATIONAL PROGRAMS DIRECTOR RECEIVED REPORT FROM DAY SHIFT NURSE. SEE FLOWSHEET FOR ASSESSMENT. THERE ARE A FEW SKIN ISSUES THAT ARE ADDRESSED, ALONG WITH THE INTERVENTIONS TO EACH. PT IS ALERT X 2 .PT IS CURRENTLY ON ROOM AIR, TOLERATING THIS WELL WITH SATURATION AT 97-100%. PT WAS TURNED AND REPOSITIONED FOR COMFORT AND CARE. WILL CONTINUE TO MONITOR THIS PT. PT IS POST OPERATION OF LAP SAVI WITH DRAINING DHRUV ON 10/20.
--- NOTE | 2019-10-28 21:00 | NUR ---
ICU/TEACHER MUSIC J/P DRAINED WAS EMPTIED OUT, 250ML. WILL MONITOR THIS.
--- NOTE | 2019-10-28 22:10 | NUR ---
ICU/CHILD LIFE SPECIALIST PT WAS TURNED AND REPOSITIONED FOR COMFORT AND CARE. PT REMAINS ON ROOM AIR, WITH SATURATION AT 97%. WILL CONTINUE TO MONITOR THIS PT. DHRUV WAS EMPTIED AGAIN AND MILKED, LOTS OF DRAINAGE AROUND SITE. WILL CONTINUE TO MONITOR THIS PT.
--- NOTE | 2019-10-28 23:00 | NUR ---
ICU/HAWK MISSILE AIR DEFENSE ARTILLERY PT APPEARS TO BE HAVING HER PERIOD. ALESSIA PAD WAS APPLIED AFTER SHE WAS CLEANED.
[2019-10-29] VITALS (93 sets, daily range): BP systolic 86–128; BP diastolic 31–81
[2019-10-29] MEDS: HYDROMORPHONE 1 MG/1 ML DISP.SYRIN IV PRN ×2 (00:05→22:10)
--- NOTE | 2019-10-29 00:10 | NUR ---
ICU/CIVIL ENGINEERING DIRECTOR PT'S MIDNIGHT BLOOD SUGAR IS 102. THERE IS NO COVERAGE FOR THIS PER MD'S ORDERS AND HOSPITAL PROTOCOL. HOWEVER WILL CONTINUE TO MONITOR THIS PT'S BLOOD SUGAR.
--- NOTE | 2019-10-29 00:30 | NUR ---
ICU/INFORMATICA DEVELOPER USING FLACC SCALE, PT'S PAIN APPEARS TO BE 10/10 PAIN IS TO POST OP SITE ON THE RIGHT SIDE WITH J/P. NOTIFIED CHARGE NURSE WHO THEN GAVE DILAUDID 0.5MG IVP. WILL CONTINUE TO MONITOR THIS PT'S PAIN .
[2019-10-29] MEDS: BLOOD SUGAR DIAGNOSTIC 1 EACH STRIP IN SCH ×4 (00:44→18:02)
[2019-10-29] MEDS: ALBUMIN 25% 25 GM in PREMIX 1 EA IV SCH ×2 (01:47→17:40)
--- NOTE | 2019-10-29 02:40 | NUR ---
ICU/SHEETER HELPER PT WAS GIVEN AM CARE. PT TOLERATED THIS WELL, REMAINS ON ROOM AIR WITH SATURATION AT 100%. J/P DRAIN WAS EMPTIED OUT. PT WAS TURNED AND REPOSITIONED FOR COMFORT AND CARE. WILL CONTINUE TO MONITOR THIS PT.
--- NOTE | 2019-10-29 04:00 | NUR ---
ICU/WELDING PANTOGRAPH OPERATOR AM LABS WERE DRAWN, AWAIT FOR ANY CRITICAL RESULTS.
[2019-10-29] MEDS: MEROPENEM 1 G in IV NS 0.9% 100 ML IV SCH ×2 (04:43→18:27)
[2019-10-29 04:47] LABS: ALANINE AMINOTRANSFERASE < 6 U/L (12-78); ALBUMIN 2.6 g/dL (3.4-5.0); ALKALINE PHOSPHATASE 232 U/L (46-116); ASPARTATE AMINOTRANSFERASE 46 U/L (15-37); BILIRUBIN,DIRECT 18.9 mg/dL (0.0-0.2); BILIRUBIN,TOTAL 24.7 mg/dL (0.2-1.0); CALCIUM, SERUM 8.2 mg/dL (8.5-10.1); CARBON DIOXIDE 17 mmol/L (21-32); CHLORIDE 100 mmol/L (98-107); CREATININE 2.7 mg/dL (0.6-1.3); GLUCOSE 113 mg/dL (74-106); MAGNESIUM 1.9 mg/dL (1.8-2.4); PHOSPHORUS 5.7 mg/dL (2.5-4.9); POTASSIUM 3.2 mmol/L (3.5-5.1); SODIUM SERUM 133 mmol/L (136-145); TOTAL PROTEIN, SERUM 4.2 g/dL (6.4-8.2); UREA NITROGEN, BLOOD 79 mg/dL (7-18)
--- NOTE | 2019-10-29 05:20 | NUR ---
ICU/HEARING SCREEN COORDINATOR CRITICAL H/H, HAD LAB DRAW FROM PERIPHERAL LINE. DUE TO THE CRITICAL LOW.
[2019-10-29 05:49] LABS: BASOPHILS # (AUTO) 0.2 /CMM (0.0-0.2); BASOPHILS % (AUTO) 0.5 % (0.0-2.0); EOSINOPHILS % (AUTO) 1.2 % (0.0-6.0); LYMPHOCYTES # (AUTO) 0.9 /CMM (0.8-4.8); LYMPHOCYTES % (AUTO) 3.3 % (20.0-44.0); MEAN CORPUSCULAR HGB CONC 35 g/dl (31.0-36.0); MEAN CORPUSCULAR VOLUME 102 fL (82-100); MONOCYTES # (AUTO) 1.2 /CMM (0.1-1.30); MONOCYTES % (AUTO) 4.4 % (2.0-12.0); NEUTROPHILS # (AUTO) 25.9 /CMM (1.8-8.9); NEUTROPHILS % (AUTO) 90.6 % (43.0-81.0); PLATELET COUNT (AUTO) 93 /CMM (150-450); WHITE BLOOD COUNT (AUTO) 28.6 K/uL (4.3-11.0)
[2019-10-29 05:51] LABS: RED BLOOD CELL COUNT(AUTO) 1.81 MIL/uL (4.0-5.2)
[2019-10-29 05:53] LABS: HEMATOCRIT 18 % (33-45); HEMOGLOBIN 6.5 g/dL (11.5-14.8)
[2019-10-29] MEDS: METOPROLOL TARTRATE 50 MG TABLET PO SCH ×2 (06:00)
--- NOTE | 2019-10-29 06:00 | NUR ---
ICU/TECHNICAL TRANSLATOR NEW REDRAW IS 6.04/17. CALLED MD FOR ORDERS.
[2019-10-29 06:24] LABS: EOSINOPHILS % (MANUAL) 1 % (0-4); LYMPHOCYTES % (MANUAL) 6 % (16-48); MONOCYTES % (MANUAL) 1 % (0-11.0); NEUTROPHILS % (MANUAL) 92 (42-76)
--- NOTE | 2019-10-29 06:45 | NUR ---
ICU/TECHNOLOGY COACH MD CALLED BACK, SAID TO TRANSFUSE AND DO A REPEAT H/H AFTER.
[2019-10-29] MEDS ORDERED: TPN BAG #3 IV PRN ×7 (07:00)
[2019-10-29 07:44] LABS: CREATINE KINASE, TOTAL 14 U/L (26-192)
--- NOTE | 2019-10-29 07:47 | NUR ---
ICU/RN INITIAL AM NOTES,AM RECEIVED BEDSIDE REPORT FROM NIGHT NURSE. PT SLEEPING COMFORTABLY, ABLE TO WAKE AND FOLLOWS COMMANDS, YET NOTED TO BE DROWSY AND LETHARGIC. PT ON ROOM AIR, NO DISTRESS. PT NOTED TO BE JAUNDICE. DHRUV DRAIN IN RIGHT LOWER QUADRANT WITH EXCESSIVE DRAINAGE. WILL CALL SURGEON TO NOTIFY. RIGHT UPPER ARM PICC LINE IN PLACE, LEVO INFUSING FOR BP SUPPORT AND TPN ORDERED. PT CURRENTLY NPO EXCEPT MEDICATIONS. ALL NEEDS WILL BE ATTENDED TO, SAFETY MEASURES TAKEN, BED IN LOW POSITION, SIDE RAILS UP, CALL LIGHT WITHIN REACH. WILL CONTINUE CARE.
--- NOTE | 2019-10-29 08:45 | NUR ---
ICU/RN: CALLED TO INFORM OF EXCESSIVE DRAINAGE FROM DHRUV DRAIN. RECEIVED TLO ORDERS TO SENT FLUID TO LAB AND HE WILL BE HERE TO ASSESS PT. WILL FOLLOW THROUGH.
[2019-10-29] MEDS: PANTOPRAZOLE 40 MG VIAL IV SCH ×2 (08:56→17:40)
[2019-10-29 09:07] LABS: *SPE A/G RATIO 0.6 (0.7-1.7); *SPE ALBUMIN 1.4 g/dL (2.9-4.4); *SPE ALPHA-1-GLOBULIN 0.2 g/dL (0.0-0.4); *SPE ALPHA-2-GLOBULIN 0.3 g/dL (0.4-1.0); *SPE BETA GLOBULIN 0.4 g/dL (0.7-1.3); *SPE GLOBULIN, TOTAL 2.2 g/dL (2.2-3.9); *SPE M-SPIKE Not Observed g/dL (Not Observed); *SPEGAMMA GLOBULIN 1.3 g/dL (0.4-1.8)
[2019-10-29 09:33] LABS: ABG BASE EXCESS -8.7 mmol/L; ABG OXYGEN SATURATION 96.1 % (92.0-98.5); ABG PCO2 28.6 mmHg (35.0-45.0); ABG PH 7.363 (7.350-7.450); ABG PO2 93.2 mmHg (75.0-100.0); AaDO2 22.3 mmHg; COHb 3.5 % (0.5-1.5); MetHb 0.6 % (0.0-1.5); O2Hb 92.2 % (94.0-97.0); SITE, ABG Left Radial; VENT MODE, BG room air
--- NOTE | 2019-10-29 10:00 | NUR ---
ICU/RN: BLOOD TRANSFUSION STARTED AT 0945. TOLERATING WELL, NO S/S OF ADVERSE REACTIONS NOTED. WILL CONTINUE TO MONITOR AND ASSESS.
--- NOTE | 2019-10-29 10:50 | NUR ---
ICU/RN: AT BEDSIDE. DHRUV DRAIN REMOVED. SITE SUTURED. DRESSING APPLIED. TURNED PT TP LEFT SIDE. WILL CONTINUE TO MONITOR SITE.
[2019-10-29] MEDS: POTASSIUM CL. PREMIX PERIPHER. 50 ML IV SCH ×2 (11:44→13:06)
--- NOTE | 2019-10-29 12:06 | NUR ---
ICU/RN: BLOOD TRANSFUSION COMPLETED. TOLERATED WELL. NO DISTRESS, VSS, NO ADVERSE REACTIONS NOTED.
[2019-10-29] MEDS: IV NS 0.9% 1,000 ML IV PRN (12:26)
[2019-10-29] MEDS: NOREPINEPHRINE 16 MG in IV D5W 500 ML IV PRN ×2 (13:09→18:02)
[2019-10-29] MEDS ORDERED: LACTULOSE 10 G/15 ML UDC (PYXIS) PO PRN (14:00)
[2019-10-29] MEDS ORDERED: OCTREOTIDE 1,250 MCG in IV NS 0.9% 247.5 ML IV PRN (14:00)
[2019-10-29] MEDS ORDERED: DIATR MEGLU/DIATRIZOATE SODIUM 30 ML BOTTLE (GASTROGRAPHIN) ONE (14:34)
[2019-10-29] MEDS: VANCOMYCIN 0.75 GM in IV D5W 250 ML IV SCH (15:49)
--- NOTE | 2019-10-29 16:30 | NUR ---
ICU/RN: RADIOLOGY AT BEDSIDE. CONSENT SIGNED AND PLACED IN CHART. CLARIFIED WITH IF IT IS OK TO GIVE PT CONTRAST ORAL AND IV. PER MD IT IS OK. WILL FOLLOW THROUGH WITH PROCEDURE.
[2019-10-29] MEDS ORDERED: IV NS 0.9% 250 ML IV ONE (16:52)
[2019-10-29] MEDS ORDERED: IOHEXOL-300 100 ML VIAL IV ONE (16:52)
[2019-10-29] MEDS ORDERED: FLUCONAZOLE IN NS 100 MG in PREMIX 1 EA IV SCH ×2 (17:00)
[2019-10-29] MEDS: LACTULOSE 10 G/15 ML UDC (PYXIS) PO SCH (17:40)
--- NOTE | 2019-10-29 19:28 | NUR ---
ICU/RN ENDING NOTES,AM BEDSIDE REPORT ENDORSED TO NIGHT NURSE. PT RESTING COMFORTABLY IN BED. SINUS ON TELE. PT ON ROOM AIR, NO DISTRESS. LEVO INFUSING ORDERED FOR BP SUPPORT. IV FLUIDS, SANDOSTATIN AND TPN INFUSING ORDERED. PT SCHEDULED FOR ERCP IN AM. PT UNABLE TO GIVE CONSENT, ENDORSED TO NIGHT NURSE TO INFORM AM MDS TO SIGN CONSENT. ALL NEEDS ATTENDED TO, VALENZUELA IN PLACE. ALL NEEDS ATTENDED TO, SAFETY MEASURES TAKEN, BED IN LOW POSITION, SIDE RAILS UP, CALL LIGHT WITHIN REACH.
--- NOTE | 2019-10-29 19:45 | NUR ---
ICU/PRODUCTION CREW SUPERVISOR RECEIVED REPORT FROM DAY SHIFT NURSE. SEE FLOWSHEET FOR ASSESSMENT. THERE ARE A FEW SKIN ISSUES THAT ARE ADDRESSED, ALONG WITH THE INTERVENTIONS TO EACH. PT IS ALERT X 2 .PT IS CURRENTLY ON ROOM AIR, TOLERATING THIS WELL WITH SATURATION AT 97-100%. PT WAS TURNED AND REPOSITIONED FOR COMFORT AND CARE. WILL CONTINUE TO MONITOR THIS PT..
--- NOTE | 2019-10-29 20:00 | NUR ---
ICU/ICICLE MACHINE OPERATOR PT'S BLOOD PRESSURE WAS IN THE 100'S TO 110'S. NOTIFIED THE CHARGE NURSE WHO THEN DECREASED LEVO FROM 7 TO 5 MCG. WILL CONTINUE TO MONITOR THIS PT AND HER BLOOD PRESSURE.
--- NOTE | 2019-10-29 22:00 | NUR ---
ICU/NATIONAL SERVICE OFFICER USING FLACC SCALE, PT'S PAIN APPEARS TO BE 10/10 PAIN IS TO ABDOMEN. NOTIFIED CHARGE NURSE WHO THEN GAVE DILAUDID 0.5MG IVP. WILL CONTINUE TO MONITOR THIS PT'S PAIN .
--- NOTE | 2019-10-29 22:40 | NUR ---
ICU/UNDER SEAL OPERATOR PT TP HAVE ERCP, NIGHT SIGNED THE CONSENT. TOMORROW WILL HAVE GI SIGN THIS. Addendum: 10/30/19 at 1950 by EMERALD PATRICK LVN GOT RENAL MD WHO WAS MORE FAMILIAR WITH THIS PT TO SIGN A NEW CONSENT. AURELIO VIEYRA WAS NOT AWARE OF PT'S HISTORY, SO HAD MD'S WHO WERE ON CASE TO SIGN CONSENT FOR ERCP.
--- NOTE | 2019-10-29 23:10 | NUR ---
ICU/DISPUTE RESOLUTION SPECIALIST PT WAS TURNED AND REPOSITIONED FOR COMFORT AND CARE. PT REMAINS ON ROOM AIR, WITH SATURATION AT 97%. WILL CONTINUE TO MONITOR THIS PT.NO ACUTE DISTRESS SEEN.
[2019-10-30] VITALS (41 sets, daily range): BP systolic 89–121; BP diastolic 41–80
[2019-10-30] MEDS: BLOOD SUGAR DIAGNOSTIC 1 EACH STRIP IN SCH ×2 (00:13→06:03)
[2019-10-30] MEDS: INSULIN REGULAR, HUMAN 100 UNIT/ML 3 ML VIAL SQ PRN ×2 (00:14→06:05)
--- NOTE | 2019-10-30 01:00 | NUR ---
ICU/QUILT SEWER PT'S MIDNIGHT BLOOD SUGAR IS 132. THERE IS COVERAGE FOR THIS PER MD'S ORDERS AND HOSPITAL PROTOCOL. HOWEVER WILL CONTINUE TO MONITOR THIS PT'S BLOOD SUGAR.
--- NOTE | 2019-10-30 04:00 | NUR ---
ICU/SALES ENABLEMENT SPECIALIST AM LABS WERE DRAWN, AWAIT FOR ANY CRITICAL RESULTS.
[2019-10-30 04:41] LABS: BASOPHILS # (AUTO) 0.2 /CMM (0.0-0.2); BASOPHILS % (AUTO) 0.6 % (0.0-2.0); EOSINOPHILS % (AUTO) 1.4 % (0.0-6.0); HEMATOCRIT 22 % (33-45); HEMOGLOBIN 7.5 g/dL (11.5-14.8); LYMPHOCYTES # (AUTO) 0.9 /CMM (0.8-4.8); LYMPHOCYTES % (AUTO) 2.7 % (20.0-44.0); MEAN CORPUSCULAR HGB CONC 35 g/dl (31.0-36.0); MEAN CORPUSCULAR VOLUME 99 fL (82-100); MONOCYTES # (AUTO) 1.9 /CMM (0.1-1.30); MONOCYTES % (AUTO) 5.8 % (2.0-12.0); NEUTROPHILS # (AUTO) 28.9 /CMM (1.8-8.9); NEUTROPHILS % (AUTO) 89.5 % (43.0-81.0); PLATELET COUNT (AUTO) 72 /CMM (150-450); RED BLOOD CELL COUNT(AUTO) 2.19 MIL/uL (4.0-5.2)
--- NOTE | 2019-10-30 05:00 | NUR ---
ICU/HOT PIPE GAUGER CRITICAL LAB RESULTS OF WBC 32.3 10/30 YESTERDAY WAS 28.6. BUN 83 10/30 YESTERDAY WAS 79 CHARGE NURSE AWARE OF THESE. Addendum: 10/30/19 at [address] KIT Enriquez HERE TO SEE PT, LET HIM KNOW ABOUT THE ELEVATED BUN. HE SAID HE WILL ADDRESS THIS.
[2019-10-30 05:10] LABS: ALBUMIN 2.3 g/dL (3.4-5.0); BILIRUBIN,TOTAL 27.2 mg/dL (0.2-1.0); CALCIUM, SERUM 8.2 mg/dL (8.5-10.1); CREATININE 2.6 mg/dL (0.6-1.3); MAGNESIUM 1.9 mg/dL (1.8-2.4); POTASSIUM 3.2 mmol/L (3.5-5.1); WHITE BLOOD COUNT (AUTO) 32.3 K/uL (4.3-11.0)
[2019-10-30 05:40] LABS: BAND % (MANUAL) 3 % (0.0-5.0); EOSINOPHILS % (MANUAL) 1 % (0-4); LYMPHOCYTES % (MANUAL) 2 % (16-48); MONOCYTES % (MANUAL) 7 % (0-11.0); NEUTROPHILS % (MANUAL) 87 (42-76)
[2019-10-30] MEDS: MEROPENEM 1 G in IV NS 0.9% 100 ML IV SCH (05:59)
--- NOTE | 2019-10-30 06:00 | NUR ---
ICU/STARCH TREATING ASSISTANT PT'S MIDNIGHT BLOOD SUGAR IS 136. THERE IS COVERAGE FOR THIS PER MD'S ORDERS AND HOSPITAL PROTOCOL. HOWEVER WILL CONTINUE TO MONITOR THIS PT'S BLOOD SUGAR.
[2019-10-30] MEDS: IV NS 0.9% 1,000 ML IV PRN (06:04)
--- NOTE | 2019-10-30 07:35 | NUR ---
MANAGER EXPRESS OPENING NOTE RECEIVED REPORT FROM PM NURSE. PT IS ALERT X OX4.BURUNDIAN SPEAKING.UNDERSTAND MICRONESIAN.PT IS CURRENTLY ON ROOM AIR, TOLERATING THIS WELL WITH SATURATION AT 97-100%. NORRIS PICCLINE.INTACT AND PATENT WITH IVF NS,TPN,SANDOSTATIN AND ON LEVO 5MCG.VALENZUELA CATH DRAINING DARK YELLOW URINE.ABDOMEN IS DISTENDED SOFT ON L SIDE THAN RIGHT.DRAINING SMALL AMOUNT SEROUS FLUID FROM SURGICAL SITE.DRESSING APPLIED.BED IS LOW AND IN LOCKED POSITION .CALL LIGT IN REACH.BED ALARM ON.SRX3.WILL CONTINUE TO MONITOR.
[2019-10-30] MEDS: POTASSIUM CL. PREMIX PERIPHER. 50 ML IV SCH ×2 (07:53→10:35)
--- NOTE | 2019-10-30 09:00 | NUR ---
CSM CONSULTANT NOTE PATIENT IS AXOX4.UNABLE TO USE PEN. WAS AT ROOM EXPLAINED PROCEDURE TO THE PATIENT.OK TO DO PROCEDURE.VERBAL CONSENT OBTAINED FROM PATIENT.2 RN VERIFIED WITH CONSENT TO DO ERCP AND ANESTHESIA.
[2019-10-30] MEDS: ALBUMIN 25% 25 GM in PREMIX 1 EA IV SCH (09:03)
[2019-10-30] MEDS: LACTULOSE 10 G/15 ML UDC (PYXIS) PO SCH (09:04)
[2019-10-30] MEDS: PANTOPRAZOLE 40 MG VIAL IV SCH (09:04)
[2019-10-30] MEDS ORDERED: ANESTHESIA TRAY IN PYXIS 1 EA TRAY MC ONE (11:05)
[2019-10-30] MEDS ORDERED: INDOMETHACIN 50 MG SUPP.RECT ONE (11:06)
[2019-10-30] MEDS ORDERED: BACITRACIN 50000 UNITS/VIAL ONE (11:06)
[2019-10-30] MEDS ORDERED: IOHEXOL 240MG/ML 0 ML IV ONE (11:22)
--- NOTE | 2019-10-30 11:22 | NUR ---
FLEET ADMINISTRATIVE ASSISTANT NOTE SEEN BY ,UPDATED ABOUT PATIENT CONDITION WITH CT AND X RAY RESULT AND EXAMINATION OF ABDOMEN DONE.PATIENT TAKEN FOR ERCP IN STABLE CONDITION WITH STABLE VITAL SIGNS.
--- NOTE | 2019-10-30 12:00 | NUR ---
TRANSFER STATION ATTENDANT NOTE GOT CALL FROM OR TO GO THERE.WENT TO OR PATIENT IS CODING AND ASKED TO PLACE ORDER FOR 2 PRBC STAT.CALL MADE TO LAB AND SPOKE TO BLOOD BANK ORDERED STAT .ONGOING CODE.
--- NOTE | 2019-10-30 12:45 | NUR ---
COTTON BAG SEWER NOTE PATIENT PRONOUNCED 1207.CALL MADE TO [facility] SPOKE TO GWENDOLYN.OK TO TRANSFER BODY TO [facility].THEY ARE NOT MOVING FORWARD WITH [facility]GAN DONATION.CASE#[id number]. CALLED SHOP DIRECTOR.NOT SHOP DIRECTOR'S CASE.CLAIM#[phone].SPOKE TO . CALLED FRIEND SWETA MADE AWARE ABOUT PATIENT .WILL CONTINUE TO MONITOR.
--- NOTE | 2019-10-30 14:00 | NUR ---
CROP RANCH HAND NOTE PATIENT BODY TAKE BACK TO ICU.POST MORTEM CARE DONE.CHECKED ALL BELONGINGS.CALL MADE TO PERSON TO NOTIFY ON LIST.SPOKE TO SWETA,HE TOLD THAT HE JUST FRIEND .KNOWING HER FOR LONG TIME.BUT HE IS NOT COMING TO SEE HER BODY OR HE IS NOT THE ONE DOING ANY THING FOR HER.SHE HAVE FAMILY AT [facility] AND [facility].BUT NO ONE VISIT HER AT ALL.HE DONT HAVE ANYONE PHONE NUMBER.CALL MADE TO LINDA SPOKE TO HER.SHE TOLD THAT SHE WORKING IN [employer].PATIENT USED TO GO OVER THERE.SHE IS HOME LESS.SO THEY USED TO GIVE HER FOOD AND CLOTHE.SHE IS NOT AWARE THAT SHE HAS FAMILY.SHE IS NOT COMING TO SEE HER.NURSING YARDER MADE AWARE.BODY WILL BE TRANSFERRED TO [facility].
[2019-10-30] MEDS ORDERED: EPINEPHRINE (1:10,000) SYRINGE 1 MG/10 ML DISP.SYRIN IVP ONE (14:59)
--- NOTE | 2019-10-30 15:00 | NUR ---
INSULATION MANAGER NOTE PATIENT BODY TRANSFERRED TO [facility] WITH BELONGINGS WITH SECURITY.PAPERWORK AND CHART GIVEN TO NURSING FABRIC COATING SUPERVISOR OFFICE.
[2019-10-30] MEDS ORDERED: TPN BAG #4 IV PRN ×7 (16:00)
== END 2019-10-30 15:00 | disposition expired | DRG 710 ==
LOC: ER 10:16 → TELE-TD 12:39 → TELE1 10-14 03:14 → MEDSG1 10-15 21:25 → ICU 10-20 13:27 → MEDSG1 10-22 11:40 → ICU 10-28 07:49
PROVIDERS: ADMIT Internal Medicine; ATTEND Internal Medicine
PROC: 0DB78ZX Excision of Stomach, Pylorus, Via Natural or Artificial Opening Endoscopic, Diagnostic (ICD-10-PCS; principal; 2019-10-19)
PROC: 0FT44ZZ Resection of Gallbladder, Percutaneous Endoscopic Approach (ICD-10-PCS; 2019-10-20)
PROC: 05H533Z Insertion of Infusion Device into Right Subclavian Vein, Percutaneous Approach (ICD-10-PCS; 2019-10-20)
PROC: B548ZZA Ultrasonography of Superior Vena Cava, Guidance (ICD-10-PCS; 2019-10-26)
PROC: 02HV33Z Insertion of Infusion Device into Superior Vena Cava, Percutaneous Approach (ICD-10-PCS; 2019-10-26)
PROC: 30233N1 Transfusion of Nonautologous Red Blood Cells into Peripheral Vein, Percutaneous Approach (ICD-10-PCS; 2019-10-29)
PROC: 5A12012 Performance of Cardiac Output, Single, Manual (ICD-10-PCS; 2019-10-30)
DX: A41.51 Sepsis due to Escherichia coli [E. coli] (principal); I21.4 Non-ST elevation (NSTEMI) myocardial infarction; J96.90 Respiratory failure, unspecified, unspecified whether with hypoxia or hypercapnia; N17.0 Acute kidney failure with tubular necrosis; E43 Unspecified severe protein-calorie malnutrition; R65.21 Severe sepsis with septic shock; E87.1 Hypo-osmolality and hyponatremia; D68.4 Acquired coagulation factor deficiency; D69.6 Thrombocytopenia, unspecified; K56.7 Ileus, unspecified; K92.2 Gastrointestinal hemorrhage, unspecified; G92 Toxic encephalopathy; Z16.12 Extended spectrum beta lactamase (ESBL) resistance; N39.0 Urinary tract infection, site not specified; E87.2 Acidosis; F10.239 Alcohol dependence with withdrawal, unspecified; K81.0 Acute cholecystitis; E87.6 Hypokalemia; K70.11 Alcoholic hepatitis with ascites; K82.A1 Gangrene of gallbladder in cholecystitis; F10.229 Alcohol dependence with intoxication, unspecified; I10 Essential (primary) hypertension; K20.9 Esophagitis, unspecified; Z59.0 Homelessness; Y90.0 Blood alcohol level of less than 20 mg/100 ml; R74.0 Nonspecific elevation of levels of transaminase and lactic acid dehydrogenase [LDH]; K31.9 Disease of stomach and duodenum, unspecified; K44.9 Diaphragmatic hernia without obstruction or gangrene; F41.9 Anxiety disorder, unspecified; K66.0 Peritoneal adhesions (postprocedural) (postinfection); Z68.33 Body mass index [BMI] 33.0-33.9, adult; K72.90 Hepatic failure, unspecified without coma; K70.31 Alcoholic cirrhosis of liver with ascites; D53.9 Nutritional anemia, unspecified
CPT/HCPCS: 31720; 36415; 36600; 70450-TC; 71045-TC; 74181-TC; 75574; 78226; 80048-TC; 80053-TC; 80061-TC; 80074; 80076-TC; 80150; 81000-TC; 82140-TC; 82247-TC; 82272-TC; 82550-TC; 82570-TC; 82728-TC; 82803-TC; 82962-TC; 83540-TC; 83605-TC; 83690-TC; 83735-TC; 83970; 84100-TC; 84155; 84155-TC; 84165; 84300-TC; 84484-TC; 84703-TC; 85025-TC; 85610-TC; 85730-TC; 86706; 86850-TC; 86921-TC; 87040-TC; 87070-TC; 87075-TC; 87081-TC; 87086-TC; 87186-TC; 87340; 88112-TC; 88304-TC; 88305-TC; 88312-TC; 88313-TC; 88342; 93307-TC; 94002-TC; 94003-TC; 94799-TC; A4216; A6253; A6403; A9537; A9563; C1751; C9113; G0378; G0480; J0171; J0278; J0330; J0690; J0696; J1100; J1170; J1450; J1815; J1885; J2020; J2175; J2185; J2250; J2354; J2405; J2543; J2704; J2765; J2997; J3010; J3370; J3411; J3475; J3480; J3490; J7030; J7040; J7042; J7050; J7060; J7070; P9016-BL; P9045; P9047; Q9963; Q9966; Q9967